=== PATIENT | female | born 1965 | race Caucasian/White ===

== ENCOUNTER 2016-09-18 21:16 | Inpatient (IN) | payer OTHER ==
[~2016-09-18] VITALS: Ht 165.1 cm; Wt 92.1 kg
[~2016-09-18 21:16] MED LIST: ALBU2.5V5 NEB; ASPI325T11 PO; ATOR20TA PO; Aspirin PO; CARV3.12 PO; CARV6.25 PO; CARV6.252 PO; DIGO250T PO; DOXY100T PO; FURO-68 PO; LINA290C PO; LOSA25TA PO; LOSA25TA4; Nicotine TD; POTA20TA12 PO; PRED-220 PO; PRED20TA PO; PROAIR HFA8.5 GM IH; SPIR25TA PO; TIOT4MIS3 IH
--- NOTE | 2016-09-18 21:50 | PHYS DOC ---
Past Medical History Past Medical History: Asthma, CHF, COPD Past Surgical History: Appendectomy, Cholecystectomy, Tonsillectomy, Tubal ligation Additional Past Surgical Histo: DEFIBULATOR Alcohol Use: None Drug Use: None Adult General Chief Complaint Chief Complaint: SHORTNESS OF BREATH [facility] HPI Patient is a 51 year old female who presents with complaint shortness of breath for the past 3 days. Patient states that her symptoms got severely worsened starting today. The patient states that she has been using her albuterol nebulizer machine at home with no improvement in symptoms. Patient last used it earlier this morning. Patient states that she also has been having difficulty with bowel movements. Patient states she hasn't had a bowel movement for the past 7 days. Patient is currently on Linzess therapy after being diagnosed with irritable bowel syndrome. Patient states that this has not been helping with her symptoms over the past week. Patient denies fever but states that she has been having body aches and generalized weakness. Patient states that she is not normally on oxygen at home though she is currently in process of getting a sleep study to see if she needs home oxygen at nighttime. Review of Systems Review of Systems Constitutional: Chills [] Eyes: Denies change in visual acuity, redness, or eye pain [] HENT: Denies nasal congestion or sore throat [] Respiratory: Shortness of breath, cough [] Cardiovascular: No additional information not addressed in HPI [] GI: Constipation, abdominal pain, nausea, denies vomiting, bloody stools or diarrhea [] : Denies dysuria or hematuria [] Musculoskeletal: Body aches, Denies back pain or joint pain [] Integument: Denies rash or skin lesions [] Neurologic: Denies headache, focal weakness or sensory changes [] Endocrine: Denies polyuria or polydipsia [] Current Medications Current Medications Current Medications Medications (Trade) Dose Ordered Sig/Siddharth Start Time Stop Time Status Last Admin Dose Admin Albuterol/ Ipratropium (Duoneb) 6 ml 1X ONCE 09/18/16 21:55 09/18/16 21:56 DC 09/18/16 22:03 6 ML Methylprednisolone Sodium Succinate (Solu-Medrol 125mg Vial) 125 mg 1X ONCE 09/18/16 21:55 09/18/16 21:56 DC 09/18/16 22:08 125 MG Allergies Allergies Allergies Coded Allergies Type Severity Reaction Last Updated Verified Penicillins Allergy Intermediate "Blacks out" 11/03/14 Yes levofloxacin Allergy Intermediate Itching 06/30/16 Yes azithromycin Adverse Reaction Mild n/v 06/30/16 Yes Physical Exam Physical Exam Constitutional: Well developed, well nourished, no acute distress, non-toxic appearance. [] HENT: Normocephalic, atraumatic, bilateral external ears normal, oropharynx moist, no oral exudates, nose normal. [] Eyes: PERRLA, EOMI, conjunctiva normal, no discharge. [] Neck: Normal range of motion, no tenderness, supple, no stridor. [] Cardiovascular:Heart rate regular rhythm, no murmur [] Lungs & Thorax: Bilateral breath sounds clear to auscultation [] Abdomen: Bowel sounds normal, soft, no tenderness, no masses, no pulsatile masses. [] Skin: Warm, dry, no erythema, no rash. [] Back: No tenderness, no CVA tenderness. [] Extremities: No tenderness, no cyanosis, no clubbing, ROM intact, no edema. [] Neurologic: Alert and oriented X 3, normal motor function, normal sensory function, no focal deficits noted. [] Psychologic: Affect normal, judgement normal, mood normal. [] Current Patient Data Vital Signs Vital Signs Date Time Temp Pulse Resp B/P Pulse Ox O2 Delivery O2 Flow Rate FiO2 09/18/16 22:21 97 Nasal Cannula 2.0 09/18/16 21:26 98 89 30 150/84 98.0 Lab Values Laboratory Tests Test 09/18/16 21:16 09/18/16 21:31 Influenza Type A Antigen Negative (NEGATIVE) Influenza Type B Antigen Negative (NEGATIVE) White Blood Count 8.9x10^3/uL (4.0-11.0) Red Blood Count 5.46x10^6/uL (3.50-5.40) H Hemoglobin 15.8g/dL (12.0-15.5) H Hematocrit 50.0% (36.0-47.0) H Mean Corpuscular Volume 92fL (79-100) Mean Corpuscular Hemoglobin 29pg (25-35) Mean Corpuscular Hemoglobin Concent 32g/dL (31-37) Red Cell Distribution Width 17.8% (11.5-14.5) H Platelet Count 187x10^3/uL (140-400) Neutrophils (%) (Auto) 68% (31-73) Lymphocytes (%) (Auto) 22% (24-48) L Monocytes (%) (Auto) 7% (0-9) Eosinophils (%) (Auto) 2% (0-3) Basophils (%) (Auto) 1% (0-3) Neutrophils # (Auto) 6.0x10^3uL (1.8-7.7) Lymphocytes # (Auto) 2.0x10^3/uL (1.0-4.8) Monocytes # (Auto) 0.6x10^3/uL (0.0-1.1) Eosinophils # (Auto) 0.1x10^3/uL (0.0-0.7) Basophils # (Auto) 0.1x10^3/uL (0.0-0.2) Sodium Level 140mmol/L (136-145) Potassium Level 4.6mmol/L (3.5-5.1) Chloride Level 102mmol/L (98-107) Carbon Dioxide Level 29mmol/L (21-32) Anion Gap 9 (6-14) Blood Urea Nitrogen 15mg/dL (7-20) Creatinine 1.0mg/dL (0.6-1.0) Estimated GFR (Cockcroft-Gault) 58.9 BUN/Creatinine Ratio 15 (6-20) Glucose Level 176mg/dL (70-99) H Calcium Level 8.9mg/dL (8.5-10.1) Total Bilirubin 2.1mg/dL (0.2-1.0) H Aspartate Amino Transferase (AST) 32U/L (15-37) Alanine Aminotransferase (ALT) 23U/L (14-59) Alkaline Phosphatase 66U/L (46-116) Creatine Kinase 64U/L (26-192) Creatine Kinase MB (Mass) 1.5ng/mL (0.0-3.6) Creatine Kinase MB Relative Index % (0-4) Troponin I Quantitative 0.081ng/mL (0.000-0.055) FB-Kyv-P-Type Natriuretic Peptide 8589pg/mL (0-124) H Total Protein 7.1g/dL (6.4-8.2) Albumin 3.0g/dL (3.4-5.0) L Albumin/Globulin Ratio 0.7 (1.0-1.7) L Laboratory Tests 09/18/16 21:31 Laboratory Tests 09/18/16 21:31 EKG EKG Interpreted by me: Heart rate 82, sinus rhythm, left axis deviation, no acute ST /T-wave abnormalities present, no acute changes from previous EKG [] Radiology/Procedures Radiology/Procedures 3 view acute abdominal series interpreted by me: Pulmonary edema, no effusions, nonobstructive bowel gas pattern, no free air under the diaphragm. [] Course & Med Decision Making Course & Med Decision Making Pertinent Labs and Imaging studies reviewed. (See chart for details) Patient was given 2 DuoNeb treatments in the emergency department and was given IV Lasix. Patient also given IV Solu-Medrol for treatment of COPD symptoms. The patient appears to have exacerbation of both COPD and congestive heart failure, with the latter being the primary diagnosis at this time. The patient will need to be admitted due to the presence of pulmonary edema and severe shortness of breath symptoms. Patient was also found to have an elevated troponin level. On review of patient's chart, the patient has had mild increases in her troponin level which is likely due to demand ischemia from patient's heart failure. This will continue to be monitored in the hospital. I spoke with Dr. Marshall who accepted care patient in hospital. A routine consult placed to Dr. Vázquez of cardiology and Dr. Bridges of pulmonology to follow patient in hospital. Dragon Disclaimer Dragon Disclaimer This electronic medical record was generated, in whole or in part, using a voice recognition dictation system. Departure Departure Impression: Primary Impression: Acute on chronic diastolic CHF (congestive heart failure) Additional Impressions: Pulmonary edema COPD (chronic obstructive pulmonary disease) Troponin level elevated Moderate protein malnutrition Disposition: ADMITTED INPATIENT Admitting Physician: Other Condition: STABLE Referrals: LUZMARIA HIGHTOWER MD (PCP) Problem Qualifiers Additional Impressions: Pulmonary edema Chronicity: acute Qualified Code: J81.0 - Acute pulmonary edema COPD (chronic obstructive pulmonary disease) COPD type: unspecified COPD Qualified Code: J44.9 - Chronic obstructive pulmonary disease, unspecified DERIAN JIN MD Sep 18, 2016 21:50
[2016-09-18] MEDS ORDERED: IPRATRPIUM/ALBUTEROL 0.5/2.5MG 3 ML NEBU. NEB ONE (21:55)
[2016-09-18] MEDS ORDERED: methylPREDNISolone SOD SUCC PF 125 MG/2 ML VIAL. IV ONE (21:55)
[2016-09-18 22:00] LABS: BASO # 0.1 x10^3/uL (0.0-0.2); BASO % 1 % (0-3); EOS % 2 % (0-3); HEMOGLOBIN 15.8 g/dL (12.0-15.5); LYMPH % 22 % (24-48); MEAN CORPUSCULAR HEMOGLOBIN 29 pg (25-35); MEAN CORPUSCULAR HGB CONC 32 g/dL (31-37); MEAN CORPUSCULAR VOLUME 92 fL (79-100); MONO % 7 % (0-9); NEUT % 68 % (31-73); PLATELET COUNT 187 x10^3/uL (140-400); RED BLOOD COUNT 5.46 x10^6/uL (3.50-5.40); RED CELL DISTRIBUTION WIDTH 17.8 % (11.5-14.5); WHITE BLOOD COUNT 8.9 x10^3/uL (4.0-11.0)
[2016-09-18 22:13] LABS: CALCIUM 8.9 mg/dL (8.5-10.1); GFR 58.9; POTASSIUM 4.6 mmol/L (3.5-5.1)
[2016-09-18 22:19] LABS: ALBUMIN/GLOBULIN RATIO 0.7 (1.0-1.7); TOTAL BILIRUBIN 2.1 mg/dL (0.2-1.0); TOTAL PROTEIN 7.1 g/dL (6.4-8.2)
[2016-09-18 22:21] LABS: OBC FLU VALID
[2016-09-18 22:27] LABS: CKMB MASS 1.5 ng/mL (0.0-3.6); CREATINE KINASE 64 U/L (26-192)
[2016-09-18] MEDS ORDERED: FENTANYL PF 100 MCG/2 ML VIAL. IV PRN (23:15)
[2016-09-18] MEDS ORDERED: IV NORMAL SALINE 1000ML BAG 1,000 ML IV SCH (23:15)
[2016-09-18] MEDS ORDERED: FUROSEMIDE 40 MG/4 ML VIAL IVP ONE (23:15)
[2016-09-18] MEDS ORDERED: ONDANSETRON PF 4 MG/2 ML VIAL. IV PRN (23:15)
[2016-09-18] MEDS ORDERED: ACETAMINOPHEN 325 MG TABLET. PO PRN (23:15)
[2016-09-18 23:45] VITALS: BP 144/89
[2016-09-19] MEDS ORDERED: ASPI-482 PO (00:23)
--- NOTE | 2016-09-19 01:34 | ACF ---
Admission Forms Criteria HEART FAILURE: COMMON COMPLICATIONS Clinical Indications for Inpatient Care (Place 'X' for any and all applicable criteria): Ongoing inpatient care may be indicated for heart failure with ANY ONE of the following (1)(2)(3)(4)(5): [ ]I. Ongoing need for care for primary condition requiring frequent therapy adjustments because of changes in cardiac function (eg, drug dosage changes for drugs that are renally metabolized) [ ]II. New-onset heart failure [ ]III. Heart failure with decreased urine output not responsive to attempts to optimize volume status [ ]IV. Acute cardiac ischemia causing or associated with failure [X]V. Complications of heart failure, including ANY ONE of the following: [ ]a) Pericardial effusion [ ]b) Symptomatic pleural effusion [ ]c) O2 saturation <90% or PO2 < 60 mm Hg (8.0 kPa) on room air or require baseline supplemental O2 [ ]d) Tachypnea [X]e) Dyspnea [ ]f) Syncope [ ]g) Change in mental status [ ]h) Acute renal insufficiency that is severe (reduction of more than 50% in estimated glomerular filtration rate from baseline) or progressive reduction of more than 25% in estimated glomerular filtration rate from baseline, with creatinine continuing to rise) [ ]i) Hemodynamic instability [ ]j) Anasarca [ ]k) Clinically significant metabolic abnormalities due to heart failure (eg, new-onset metabolic acidosis) Extended stay beyond goal length of stay for primary condition may be needed until ALL of the following are present(1)(3): [ ]a) Stable and effective diuretic regimen established (or patient on stable dialysis regimen if in chronic renal failure) [ ]b) Breathing comfortably at rest [ ]c) Saturation of arterial oxygen greater than 90% or at acceptable baseline [ ]d) Pulmonary edema absent or improved [ ]e) Hemodynamic stability [ ]f) Volume status acceptable on oral medication [ ]g) Peripheral or sacral edema absent or improved [ ]h) Renal function stable and manageable at a lower level of care [ ]i) Complications (eg, pleural effusion) resolved or manageable at a lower level of care [ ]j) Patient or caregiver has received written discharge instructions or educational material addressing activity level, diet, discharge medications, follow-up appointment, weight monitoring, and what to do if symptoms worsen The original [employer] content created by [employer] has been revised. The portions of the content which have been revised are identified through the use of italic text or in bold, and [facility] has neither reviewed nor approved the modified material.All other unmodified content is copyright [facility]. Please see references footnoted in the original [facility] edition 2016 Admission Criteria Met?: Yes DIA REYES Sep 19, 2016 01:34
[2016-09-19 03:55] VITALS: BP 128/83
[2016-09-19 05:09] LABS: BASO % 0 % (0-3); EOS % 0 % (0-3); HEMOGLOBIN 16.3 g/dL (12.0-15.5); LYMPH # 0.6 x10^3/uL (1.0-4.8); LYMPH % 9 % (24-48); MEAN CORPUSCULAR HEMOGLOBIN 29 pg (25-35); MEAN CORPUSCULAR HGB CONC 32 g/dL (31-37); MEAN CORPUSCULAR VOLUME 89 fL (79-100); MONO % 1 % (0-9); NEUT % 89 % (31-73); PLATELET COUNT 199 x10^3/uL (140-400); RED BLOOD COUNT 5.73 x10^6/uL (3.50-5.40); RED CELL DISTRIBUTION WIDTH 17.9 % (11.5-14.5); WHITE BLOOD COUNT 6.9 x10^3/uL (4.0-11.0)
[2016-09-19 05:27] LABS: GFR 58.9; POTASSIUM 4.1 mmol/L (3.5-5.1)
[2016-09-19 07:00] VITALS: BP 120/72
--- NOTE | 2016-09-19 07:03 | EKG ---
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
[2016-09-19] MEDS: IPRATRPIUM/ALBUTEROL 0.5/2.5MG 3 ML NEBU. NEB SCH ×4 (08:00→19:05)
--- NOTE | 2016-09-19 08:00 | RAD ---
Acute abdomen series with chest, 09/18/2016: History: Shortness of breath, epigastric pain Gas is present in large and small bowel with minimal gaseous distention of several small bowel loops. Small scattered air-fluid levels are present. No free air is seen in the abdomen. There is no evidence of organomegaly. Small pelvic calcifications are probably vascular. A left-sided transvenous pacing device is in place with 2 leads extending into the right heart. The heart is enlarged. The pulmonary vascularity is at the upper limits of normal. No pulmonary consolidation is seen. There is no evidence of pleural fluid. IMPRESSION: 1. Scattered air-fluid levels in the GI tract suggesting a mild ileus. Partial small bowel obstruction is less likely. 2. Cardiomegaly with borderline vascular congestion, similar to that seen on 06/29/2016.
--- NOTE | 2016-09-19 09:31 | PDOC2 ---
MARCIE TORRES SMOCKER 09/19/16 0931: CARDIAC CONSULT DATE OF CONSULT Date of Consult DATE: 09/19/16 TIME: 09:20 REASON FOR CONSULT Reason for Consult: CHF REFERRING PHYSICIAN Referring Physician: Dr. Chen SOURCE Source: Chart review, Patient HISTORY OF PRESENT ILLNESS HISTORY OF PRESENT ILLNESS This is a 51 yo female, with a h/o systolic CHF and NICM s/p AICD implantation, who presented with complaints of shortness of breath and constipation. Patient reports SOA began 3 days ago, worsened yesterday so she can in for evaluation. Denies any chest pain, palpitations, diaphoresis, orthopnea/PND, LE edema, or recent illness/fevers. Ocasional dizziness, unchanged. Does reports ongoing constipation and bowel problems. Last bowel movement 9 days ago. Started on Linzess a few days ago by PCP. Patient is very concerned that "something is really wrong with my bowels." Associated with nausea and abdominal cramping. Reports her stomach tightens like a "rock" and puts pressure on her lungs making it difficult to breathe. Previously, with episodes of acute heart failure with volume overload, patient reports she could "feel when I have too much fluid and I don't feel like that now." Patient does reports she will take an extra Lasix when she recognizes mild fluid retention; took extra dose 2 days ago. Otherwise, reports compliance with medications. PAST MEDICAL HISTORY Cardiovascular: CHF (systolic (LVEF 15%)), HTN, Other (NICM s/p AICD) Pulmonary: Asthma, COPD, Other (BRADLEY?) GI: Constipation Heme/Onc: No pertinent hx Hepatobiliary: No pertinent hx Psych: Anxiety Musculoskeletal: Osteoarthritis, Other (DJD) Rheumatologic: No pertinent hx Infectious disease: No pertinent hx ENT: No pertinent hx Renal/: No pertinent hx, Urinary Incontinence Endocrine: No pertinent hx Dermatology: No pertinent hx PAST SURGICAL HISTORY Past Surgical History: Pacemaker (AICD- Biotronik ), Appendectomy, Cholecystectomy, Tubal Ligation FAMILY HISTORY Family History: Cancer, Heart Disease SOCIAL HISTORY Smoke: <1 pack per day ALCOHOL: none Drugs: None Lives: Alone CURRENT MEDICATIONS CURRENT MEDICATIONS Current Medications Medications (Trade) Dose Ordered Sig/Siddharth Route PRN Reason Start Time Stop Time Status Last Admin Dose Admin Albuterol/ Ipratropium (Duoneb) 6 ml 1X ONCE NEB 09/18/16 21:55 09/18/16 21:56 DC 09/18/16 22:03 Methylprednisolone Sodium Succinate (Solu-Medrol 125mg Vial) 125 mg 1X ONCE IV 09/18/16 21:55 09/18/16 21:56 DC 09/18/16 22:08 Furosemide (Lasix) 60 mg 1X ONCE IVP 09/18/16 23:15 09/18/16 23:16 DC 09/18/16 23:12 ALLERGIES ALLERGIES: Coded Allergies: Penicillins (Verified Allergy, Intermediate, "Blacks out", 11/03/14) levofloxacin (Verified Allergy, Intermediate, Itching, 06/30/16) azithromycin (Verified Adverse Reaction, Mild, n/v, 06/30/16) ROS Review of System 14 point ROS conducted with pertinent positives noted above in HPI. PHYSICAL EXAM General: Alert, Oriented X3, Cooperative, No acute distress HEENT: Atraumatic, Mucous membr. moist/pink Lungs: Clear to auscultation, Normal air movement Heart: Regular rate, Normal S1, Normal S2 Abdomen: Soft, Other (diffuse tenderness upon palpation, hyperactive bowels) Extremities: No edema, Normal pulses Skin: No significant lesion Neuro: Normal speech, Strength at 5/5 X4 ext, Sensation intact Psych/Mental Status: Mental status NL, Mood NL MUSCULOSKELETAL: Full range of motion without pain VITALS VITALS Vital Signs Date Time Temp Pulse Resp B/P Pulse Ox O2 Delivery O2 Flow Rate FiO2 09/19/16 08:13 89 Room Air 09/19/16 07:00 97.9 102 20 120/72 97.9 09/18/16 23:50 2.0 LABS Lab: Laboratory Tests Test 09/18/16 21:16 09/18/16 21:31 09/19/16 04:12 09/19/16 04:28 Influenza Type A Antigen Negative (NEGATIVE) Influenza Type B Antigen Negative (NEGATIVE) White Blood Count 8.9x10^3/uL (4.0-11.0) 6.9x10^3/uL (4.0-11.0) Red Blood Count 5.46x10^6/uL (3.50-5.40) 5.73x10^6/uL (3.50-5.40) Hemoglobin 15.8g/dL (12.0-15.5) 16.3g/dL (12.0-15.5) Hematocrit 50.0% (36.0-47.0) 51.0% (36.0-47.0) Mean Corpuscular Volume 92fL (79-100) 89fL (79-100) Mean Corpuscular Hemoglobin 29pg (25-35) 29pg (25-35) Mean Corpuscular Hemoglobin Concent 32g/dL (31-37) 32g/dL (31-37) Red Cell Distribution Width 17.8% (11.5-14.5) 17.9% (11.5-14.5) Platelet Count 187x10^3/uL (140-400) 199x10^3/uL (140-400) Neutrophils (%) (Auto) 68% (31-73) 89% (31-73) Lymphocytes (%) (Auto) 22% (24-48) 9% (24-48) Monocytes (%) (Auto) 7% (0-9) 1% (0-9) Eosinophils (%) (Auto) 2% (0-3) 0% (0-3) Basophils (%) (Auto) 1% (0-3) 0% (0-3) Neutrophils # (Auto) 6.0x10^3uL (1.8-7.7) 6.2x10^3uL (1.8-7.7) Lymphocytes # (Auto) 2.0x10^3/uL (1.0-4.8) 0.6x10^3/uL (1.0-4.8) Monocytes # (Auto) 0.6x10^3/uL (0.0-1.1) 0.1x10^3/uL (0.0-1.1) Eosinophils # (Auto) 0.1x10^3/uL (0.0-0.7) 0.0x10^3/uL (0.0-0.7) Basophils # (Auto) 0.1x10^3/uL (0.0-0.2) 0.0x10^3/uL (0.0-0.2) Sodium Level 140mmol/L (136-145) 142mmol/L (136-145) Potassium Level 4.6mmol/L (3.5-5.1) 4.1mmol/L (3.5-5.1) Chloride Level 102mmol/L (98-107) 102mmol/L (98-107) Carbon Dioxide Level 29mmol/L (21-32) 32mmol/L (21-32) Anion Gap 9 (6-14) 8 (6-14) Blood Urea Nitrogen 15mg/dL (7-20) 17mg/dL (7-20) Creatinine 1.0mg/dL (0.6-1.0) 1.0mg/dL (0.6-1.0) Estimated GFR (Cockcroft-Gault) 58.9 58.9 BUN/Creatinine Ratio 15 (6-20) Glucose Level 176mg/dL (70-99) 164mg/dL (70-99) Calcium Level 8.9mg/dL (8.5-10.1) 9.0mg/dL (8.5-10.1) Total Bilirubin 2.1mg/dL (0.2-1.0) Aspartate Amino Transf (AST/SGOT) 32U/L (15-37) Alanine Aminotransferase (ALT/SGPT) 23U/L (14-59) Alkaline Phosphatase 66U/L (46-116) Creatine Kinase 64U/L (26-192) Creatine Kinase MB (Mass) 1.5ng/mL (0.0-3.6) Creatine Kinase MB Relative Index % (0-4) Troponin I Quantitative 0.081ng/mL (0.000-0.055) 0.059ng/mL (0.000-0.055) NU-Hxv-A-Type Natriuretic Peptide 8589pg/mL (0-124) Total Protein 7.1g/dL (6.4-8.2) Albumin 3.0g/dL (3.4-5.0) Albumin/Globulin Ratio 0.7 (1.0-1.7) ECHOCARDIOGRAM ECHOCARDIOGRAM <Conclusion> The Left Ventricle is severely dilated. The systolic function is severely impaired. Left ventricular ejection fraction is estimated at 15% There is severe global hypokinesis of the left ventricle. There is mild concentric left ventricular hypertrophy. There is a pacemaker/ICD lead in the right ventricle. There is no significant aortic valvular stenosis. Doppler and Color Flow revealed trace aortic regurgitation. Doppler and Color-flow revealed severe mitral regurgitation. Doppler and Color Flow revealed mild tricuspid regurgitation. The PA pressure was estimated at 53 mmHg. DATE: 07/02/16 1200 HEART CATH HEART CATH Conclusion 1. No significant coronary artery disease 2. Recent 2-D echo showed LVEF 25%. 3. Elevated left ventricular end-diastolic pressure 42 mmHg. No significant aortic stenosis. Recommendations Optimization of medical therapy for severe nonischemic cardiomyopathy. Consider repeating 2-D echo in 3 months to evaluate the need for AICD implantation for primary prevention of sudden cardiac . DATE: 11/05/14 1139 ASSESSMENT/PLAN ASSESSMENT/PLAN 1. Dyspnea multifactorial give acute HF, COPD, and possible ileus/abdominal pressure troponin peak 0.081- type II demand ischemia. Mild elevation consistent with previous admissions. Recent cath with no obstructive CAD as above. improved per pulmonary 2. Acute on chronic systolic HF NT Pro BNP mildly elevated CXR with cardiomegaly, no pleural fluid noted. Symptoms improved and moderate UOP with IV diuresis. continue with diuresis and monitoring of renal function 3. Nonischemic cardiomyopathy s/p Biotronik AICD implantation 11/14 cath with no significant CAD. will interrogate device. continue with optimization therapy as able. 4. Hypertension controlled. NPO for now with possible ileus. will start IV metoprolol for now for rate/BP control. resume oral Coreg and digoxin when able to take PO. 5. Hyperlipidemia resume statin therapy when taking oral 6. Constipation/ abdominal pain possible mild ileus per abdominal xray per PCP 7. Tobaccoism cessations encouraged. Problems: ZAHRA DOS SANTOS MD 09/19/16 1522: CARDIAC CONSULT ALLERGIES ALLERGIES: Coded Allergies: Penicillins (Verified Allergy, Intermediate, "Blacks out", 11/03/14) levofloxacin (Verified Allergy, Intermediate, Itching, 06/30/16) azithromycin (Verified Adverse Reaction, Mild, n/v, 06/30/16) ASSESSMENT/PLAN ASSESSMENT/PLAN Patient seen and examined. Agree with PRODUCTION TEAM MEMBER's assessment and plan. Acute respiratory failure multifactorial. Continue diuretics for acute on chronic systolic heart failure. Recent AICD check showed normal function without any recorded VT/VF. Troponin level very slightly elevated most probably secondary to hypoxia. Recent cardiac catheterization did not show any significant coronary artery disease. Doubt ACS. The importance of smoking cessation has been reemphasized. Thank you for your consultation. Problems: MARCIE TORRES APRN Sep 19, 2016 09:31 ZAHRA DOS SANTOS MD Sep 19, 2016 15:22
[2016-09-19 11:00] VITALS: BP 138/79
[2016-09-19] MEDS ORDERED: METOPROLOL TARTRATE 5 MG/5 ML VIAL. IVP SCH (12:00)
--- NOTE | 2016-09-19 13:28 | PDOC ---
Provider Note Provider Note dictated DEENA AGUERO MD Sep 19, 2016 13:27
--- NOTE | 2016-09-19 13:55 | PDOC2 ---
GI CONSULT Reason For Consult: Ileus, constipation HPI: HPI: 51 y/o white female admitted to cardiac floor w/ dyspnea and h/o COPD and CHF. Cardiology and pulmonology are following. Additionally, she has been constipated and x-ray was suggestive of mild ileus, hence GI consult. It seems she has a h/o constipation w/ 1 stool every 3-4 days until about 1 year ago when constipation worsened. She saw her PCP for this and tried a powder (? Miralax) which was ineffective. She has been taking Linzess 290mcg QD for about 7 months which is sometimes effective but sometimes not. Her last bowel movement was about 9 days ago. Stools are sometimes like "rabbit pellets." Right now, she feels like there is a "ball" close to her rectum. She is passing gas. With constipation, she has felt bloated (discomfort) and nauseated but is tolerating a regular diet. No reflux/heartburn, vomiting, dysphagia, hematochezia, or melena. She says her weight fluctuates w/ bloating. Occasionally takes Aleve, denies narcotic use at home. No previous EGD or colonoscopy although with these problems she has considered scheduling a colonoscopy. PMH: PMH: CHF, HTN, COPD, constipation, anxiety, OA, DJD, urinary incontinence, pacemaker , appendectomy, cholecystectomy, tubal ligation FH: Family History: Cancer (maternal granmother - colon cancer), CAD Social History: Smoke: <1 pack per day ALCOHOL: none Drugs: None ROS: GEN: Denies fevers, chills, sweats HEENT: Denies blurred vision, sore throat CV: Denies chest pain RESP: +SOA GI: Per HPI : Denies hematuria, dysuria ENDO: weight fluctuates NEURO: Denies confusion, dizziness MSK: Denies weakness, joint pain/swelling SKIN: Denies jaundice, pruritus VItals: Vitals: Vital Signs Date Time Temp Pulse Resp B/P Pulse Ox O2 Delivery O2 Flow Rate FiO2 09/19/16 13:16 93 138/79 09/19/16 11:59 Room Air 09/19/16 11:00 97.9 22 92 97.9 09/19/16 08:00 2.0 Labs: Labs: Laboratory Tests Test 09/18/16 21:16 09/18/16 21:31 09/19/16 04:12 09/19/16 04:28 Influenza Type A Antigen Negative (NEGATIVE) Influenza Type B Antigen Negative (NEGATIVE) White Blood Count 8.9x10^3/uL (4.0-11.0) 6.9x10^3/uL (4.0-11.0) Red Blood Count 5.46x10^6/uL (3.50-5.40) 5.73x10^6/uL (3.50-5.40) Hemoglobin 15.8g/dL (12.0-15.5) 16.3g/dL (12.0-15.5) Hematocrit 50.0% (36.0-47.0) 51.0% (36.0-47.0) Mean Corpuscular Volume 92fL (79-100) 89fL (79-100) Mean Corpuscular Hemoglobin 29pg (25-35) 29pg (25-35) Mean Corpuscular Hemoglobin Concent 32g/dL (31-37) 32g/dL (31-37) Red Cell Distribution Width 17.8% (11.5-14.5) 17.9% (11.5-14.5) Platelet Count 187x10^3/uL (140-400) 199x10^3/uL (140-400) Neutrophils (%) (Auto) 68% (31-73) 89% (31-73) Lymphocytes (%) (Auto) 22% (24-48) 9% (24-48) Monocytes (%) (Auto) 7% (0-9) 1% (0-9) Eosinophils (%) (Auto) 2% (0-3) 0% (0-3) Basophils (%) (Auto) 1% (0-3) 0% (0-3) Neutrophils # (Auto) 6.0x10^3uL (1.8-7.7) 6.2x10^3uL (1.8-7.7) Lymphocytes # (Auto) 2.0x10^3/uL (1.0-4.8) 0.6x10^3/uL (1.0-4.8) Monocytes # (Auto) 0.6x10^3/uL (0.0-1.1) 0.1x10^3/uL (0.0-1.1) Eosinophils # (Auto) 0.1x10^3/uL (0.0-0.7) 0.0x10^3/uL (0.0-0.7) Basophils # (Auto) 0.1x10^3/uL (0.0-0.2) 0.0x10^3/uL (0.0-0.2) Sodium Level 140mmol/L (136-145) 142mmol/L (136-145) Potassium Level 4.6mmol/L (3.5-5.1) 4.1mmol/L (3.5-5.1) Chloride Level 102mmol/L (98-107) 102mmol/L (98-107) Carbon Dioxide Level 29mmol/L (21-32) 32mmol/L (21-32) Anion Gap 9 (6-14) 8 (6-14) Blood Urea Nitrogen 15mg/dL (7-20) 17mg/dL (7-20) Creatinine 1.0mg/dL (0.6-1.0) 1.0mg/dL (0.6-1.0) Estimated GFR (Cockcroft-Gault) 58.9 58.9 BUN/Creatinine Ratio 15 (6-20) Glucose Level 176mg/dL (70-99) 164mg/dL (70-99) Calcium Level 8.9mg/dL (8.5-10.1) 9.0mg/dL (8.5-10.1) Total Bilirubin 2.1mg/dL (0.2-1.0) Aspartate Amino Transf (AST/SGOT) 32U/L (15-37) Alanine Aminotransferase (ALT/SGPT) 23U/L (14-59) Alkaline Phosphatase 66U/L (46-116) Creatine Kinase 64U/L (26-192) Creatine Kinase MB (Mass) 1.5ng/mL (0.0-3.6) Creatine Kinase MB Relative Index % (0-4) Troponin I Quantitative 0.081ng/mL (0.000-0.055) 0.059ng/mL (0.000-0.055) RA-Tan-H-Type Natriuretic Peptide 8589pg/mL (0-124) Total Protein 7.1g/dL (6.4-8.2) Albumin 3.0g/dL (3.4-5.0) Albumin/Globulin Ratio 0.7 (1.0-1.7) Test 09/19/16 10:30 Troponin I Quantitative 0.062ng/mL (0.000-0.055) Allergies: Coded Allergies: Penicillins (Verified Allergy, Intermediate, "Blacks out", 11/03/14) levofloxacin (Verified Allergy, Intermediate, Itching, 06/30/16) azithromycin (Verified Adverse Reaction, Mild, n/v, 06/30/16) Medications: Current Medications Medications (Trade) Dose Ordered Sig/Siddharth Route PRN Reason Start Time Stop Time Status Last Admin Dose Admin Albuterol/ Ipratropium (Duoneb) 6 ml 1X ONCE NEB 09/18/16 21:55 09/18/16 21:56 DC 09/18/16 22:03 Methylprednisolone Sodium Succinate (Solu-Medrol 125mg Vial) 125 mg 1X ONCE IV 09/18/16 21:55 09/18/16 21:56 DC 09/18/16 22:08 Furosemide (Lasix) 60 mg 1X ONCE IVP 09/18/16 23:15 09/18/16 23:16 DC 09/18/16 23:12 Albuterol/ Ipratropium (Duoneb) 3 ml RTQID NEB 09/19/16 08:00 09/20/16 07:59 09/19/16 08:00 Metoprolol Tartrate (Lopressor) 5 mg Q6HRS IVP 09/19/16 12:00 09/19/16 13:16 Imaging: Imagin09/18/16 IMPRESSION: 1. Scattered air-fluid levels in the GI tract suggesting a mild ileus. Partial small bowel obstruction is less likely. 2. Cardiomegaly with borderline vascular congestion, similar to that seen on . PE: GEN: NAD, sittign on edge of bed w/ empty lunch tray HEENT: Atraumatic, PERRL LUNGS: CTAB HEART: RRR ABD: BS+, epigastric/periumbilical discomfort (vague) EXTREMITY: No edema SKIN: No rashes, no jaundice NEURO/PSYCH: A & O 3 A/P: A/P: Constipation, bloating, nausea -worsening constipation x 1 year, uncontrolled w/ Linzess - last BM 9 days ago -tolerating diet Abnormal x-ray -suggestive of mild ileus Dyspnea/COPD, CHF -cardio and pulm following CRC screen, FH colon cancer -no previous colonoscopy -- Will try tap water enema and Relistor. ISABELLA GARRISON Sep 19, 2016 13:54
[2016-09-19 15:00] VITALS: BP 115/59
[2016-09-19] MEDS ORDERED: METHYLNALTREXONE 12 MG/0.6 ML VIAL. SQ ONE (15:00)
[2016-09-19] MEDS: FUROSEMIDE 40 MG/4 ML VIAL IVP SCH (16:43)
[2016-09-19] MEDS: ASPIRIN ENTERIC COATED 81 MG TABLET.DR. PO SCH (16:43)
[2016-09-19] MEDS: CARVEDILOL 6.25 MG TABLET PO SCH (16:43)
[2016-09-19] MEDS: DIGOXIN 250 MCG TABLET PO SCH (16:43)
[2016-09-19 19:40] VITALS: BP 126/76
--- NOTE | 2016-09-19 19:54 | HP ---
ADMIT DATE: 09/19/2016 CHIEF COMPLAINT: Shortness of breath. HISTORY OF PRESENT ILLNESS: The patient is a pleasant 51-year-old female who has previous history of CHF and COPD. She also has been recently diagnosed with irritable bowel syndrome. She started Linzess recently as well. Basically, the patient appears to be in heart failure. Her chest x-ray shows vascular congestion. She has crackles and her BNP level is greater than 8589. I discussed the case with the ER physician. We admitted the patient and examined her earlier this morning where she is diuresing. PAST MEDICAL HISTORY: CHF, tobacco abuse, COPD, hypertension, hyperlipidemia, appendectomy, cholecystectomy, tubal ligation, defibrillator placement, irritable bowel syndrome. FAMILY HISTORY: Coronary artery disease. ALLERGIES: PENICILLIN, AZITHROMYCIN and LEVAQUIN. SOCIAL HISTORY: She smokes. No drinking or drugs. MEDICATIONS: Reviewed, please refer to the MRAD. REVIEW OF SYSTEMS: GENERAL: No history of weight change, weakness or fevers. SKIN: No bruising, hair changes or rashes. EYES: No blurred, double or loss of vision. NOSE AND THROAT: No history of nosebleeds, hoarseness or sore throat. HEART: The patient complains of palpitations. LUNGS: The patient complains of shortness of breath. GASTROINTESTINAL: The patient complains of constipation. GENITOURINARY: No history of frequency, urgency, hesitancy or nocturia. NEUROLOGIC: Denies history of numbness, tingling, tremor or weakness. PSYCHIATRIC: No history of panic, anxiety or depression. ENDOCRINE: No history of heat or cold intolerance, polyuria or polydipsia. EXTREMITIES: Denies muscle weakness, joint pain, pain on walking or stiffness. PHYSICAL EXAMINATION: VITAL SIGNS: Temperature afebrile, pulse 67, respirations 18, blood pressure 113/91. GENERAL: She is alert, cooperative. HEART: Normal S1, S2 with a soft S3. LUNGS: Bibasilar crackles. ABDOMEN: Soft, decreased bowel sounds, slightly tender. EXTREMITIES: 1+ edema. SKIN: No rashes. PSYCHIATRIC: She is stable. LABORATORY DATA: Reviewed. ASSESSMENT AND PLAN: Vtvnd-my-uycibqh systolic and diastolic heart failure in a middle-aged female who also has the above noted comorbidities and now seems to have an ileus and/or mxpwe-ux-urzlffe constipation. The patient has been admitted. We are consulting GI and cardiology. IV diuretics, cardiac enzymes x 3, EKGs x 3. Suspect she will need an echocardiogram, but we will await further cardiac input. We will try enemas if GI agrees. Continue her home medicines. JORDANA HAY DO DR: LISA/clarisse JOB#: [id number] / [id number]
[2016-09-19 23:10] VITALS: BP 128/69
[2016-09-20 03:10] VITALS: BP 153/117
[2016-09-20 07:00] VITALS: BP 141/85
[2016-09-20] MEDS ORDERED: LINACLOTIDE 145 MCG CAPSULE. PO SCH (07:00)
[2016-09-20] MEDS: IPRATRPIUM/ALBUTEROL 0.5/2.5MG 3 ML NEBU. NEB SCH ×4 (07:39→21:01)
[2016-09-20] MEDS: LUBIPROSTONE 8 MCG CAPSULE PO SCH ×3 (08:00→18:07)
[2016-09-20] MEDS: CARVEDILOL 6.25 MG TABLET PO SCH ×2 (08:24→18:08)
[2016-09-20] MEDS: DIGOXIN 250 MCG TABLET PO SCH (08:24)
[2016-09-20] MEDS: ASPIRIN ENTERIC COATED 81 MG TABLET.DR. PO SCH (08:24)
[2016-09-20] MEDS: FUROSEMIDE 40 MG/4 ML VIAL IVP SCH (08:25)
--- NOTE | 2016-09-20 09:12 | CONS ---
DATE OF CONSULTATION: 09/19/2016 ATTENDING PHYSICIAN: Dr. Marshall. REASON FOR CONSULTATION: Dyspnea. HISTORY OF PRESENT ILLNESS: The patient is a 51-year-old female, with history of severe cardiomyopathy with an EF of 15%. She has history of tobacco use for 30 years. She used to smoke 2 packs per day, now 1 pack would last for 3 days. She presented to the hospital with increasing shortness of breath for the past 3 days. She has a mild cough which is nonproductive. No fever, no chills, no chest pains. No nausea or vomiting. No headaches. No leg edema. Her chest x-ray was consistent with mild congestive heart failure and cardiomegaly. PAST MEDICAL HISTORY: History of severe cardiomyopathy with an EF of 15%, with severe hypokinesis of the LV. Probable underlying COPD. PAST SURGICAL HISTORY: Include appendectomy, cholecystectomy, tonsillectomy, tubal ligation, and defibrillator. ALLERGIES: TO PENICILLIN, AZITHROMYCIN, LEVAQUIN. CURRENT MEDICATIONS: Reviewed as listed in the MRAD. She is currently on DuoNebs, but not on any diuretics. REVIEW OF SYSTEMS: Twelve-point review of systems was obtained. Pertinent positives discussed in history of present illness, otherwise noncontributory. All systems that were negative were reviewed as well. SOCIAL HISTORY: Smoked for 30 years up to 2 packs per day, now 1 pack would last a week. PHYSICAL EXAMINATION: VITAL SIGNS: Blood pressure 138/79, pulse ox 92% on room air, afebrile. NECK: Supple. LUNGS: With diminished breath sounds. No crackles or wheezes. CARDIOVASCULAR: Regular rate and rhythm. ABDOMEN: Soft, obese. EXTREMITIES: No pitting edema. LABORATORY DATA: Reviewed. White cell count 6.9, hemoglobin 16.3, and platelets are 199. BUN 17, creatinine 1.0. Troponin is 0.081. IMPRESSION: 1. Dyspnea secondary to voyvf-wy-eiebwgt systolic heart failure. 2. Severe cardiomyopathy with an EF of 15%, with severe global hypokinesis of the left ventricle. Status post defibrillator. 3. Suspected underlying chronic obstructive pulmonary disease: Could be moderate, with ongoing tobaccoism. RECOMMENDATIONS: 1. Would recommend aggressive diuresis. To be managed by Cardiology. 2. From a pulmonary standpoint, I have given her counseling for tobacco cessation. 3. We will continue with present DuoNebs. 4. Currently, she does not have any wheezing and okay to continue with metoprolol. 5. Follow Cardiology recommendations. 6. Discussed with RN. DEENA AGUERO MD DR: ELAINE/clarisse JOB#: [id number] / [id number] WILNER
--- NOTE | 2016-09-20 09:13 | PDOC ---
Subjective: Subjective: Less bloated, passing gas, also passed small amount of stool after Relistor. Not excited about keeping to clear liquids today. Objective: Objective: Enema not done. Vital Signs: Vital Signs Date Time Temp Pulse Resp B/P Pulse Ox O2 Delivery O2 Flow Rate FiO2 09/20/16 08:24 100 141/85 09/20/16 07:41 93 Room Air 09/20/16 07:00 97.5 97.5 09/20/16 03:10 18 09/19/16 23:10 2.0 Labs: Laboratory Tests Test 09/19/16 10:30 Troponin I Quantitative 0.062ng/mL PE: GEN: NAD LUNGS: CTAB HEART: RRR ABD: BS+ non-tender NEURO/PSYCH: A & O 3 A/P: Constipation, bloating -worsening constipation x 1 year, uncontrolled w/ Linzess as outpatient -had a small stool after Relistor; didn't receive tap water enema Dyspnea/COPD, CHF -cardio and pulm following CRC screen, FH colon cancer -no previous colonoscopy -- Proceed w/ enema, Amitiza, and Golytely (later this afternoon). Plans for EGD and colonoscopy tomorrow following prep. Clears today, NPO at midnight. ISABELLA GARRISON Sep 20, 2016 09:13
[2016-09-20 09:32] LABS: BASO # 0.1 x10^3/uL (0.0-0.2); BASO % 1 % (0-3); EOS % 0 % (0-3); HEMATOCRIT 51.5 % (36.0-47.0); HEMOGLOBIN 16.5 g/dL (12.0-15.5); LYMPH # 1.1 x10^3/uL (1.0-4.8); LYMPH % 8 % (24-48); MEAN CORPUSCULAR HEMOGLOBIN 28 pg (25-35); MEAN CORPUSCULAR HGB CONC 32 g/dL (31-37); MEAN CORPUSCULAR VOLUME 89 fL (79-100); MONO % 6 % (0-9); NEUT % 85 % (31-73); PLATELET COUNT 223 x10^3/uL (140-400); RED BLOOD COUNT 5.79 x10^6/uL (3.50-5.40); RED CELL DISTRIBUTION WIDTH 17.8 % (11.5-14.5); WHITE BLOOD COUNT 14.3 x10^3/uL (4.0-11.0)
[2016-09-20 09:57] LABS: CALCIUM 8.7 mg/dL (8.5-10.1); GFR 58.9; POTASSIUM 4.6 mmol/L (3.5-5.1)
[2016-09-20] MEDS ORDERED: ACETAMINOPHEN 325 MG TABLET. PO PRN (11:00)
[2016-09-20 11:15] VITALS: BP 102/67
--- NOTE | 2016-09-20 12:00 | PDOC ---
PULMONARY PROGRESS NOTES Subjective no soa Vitals Vital Signs Date Time Temp Pulse Resp B/P Pulse Ox O2 Delivery O2 Flow Rate FiO2 09/20/16 11:15 97.6 83 20 102/67 93 Room Air 97.6 09/20/16 08:00 2.0 General: Alert Lungs: Clear Cardiovascular: S1, S2 Abdomen: Soft Neuro Exam: Alert Extremities: No Edema Skin: Warm Labs Laboratory Tests Test 09/18/16 21:16 09/18/16 21:31 09/19/16 04:12 09/19/16 04:28 Influenza Type A Antigen Negative (NEGATIVE) Influenza Type B Antigen Negative (NEGATIVE) White Blood Count 8.9x10^3/uL (4.0-11.0) 6.9x10^3/uL (4.0-11.0) Red Blood Count 5.46x10^6/uL (3.50-5.40) 5.73x10^6/uL (3.50-5.40) Hemoglobin 15.8g/dL (12.0-15.5) 16.3g/dL (12.0-15.5) Hematocrit 50.0% (36.0-47.0) 51.0% (36.0-47.0) Mean Corpuscular Volume 92fL (79-100) 89fL (79-100) Mean Corpuscular Hemoglobin 29pg (25-35) 29pg (25-35) Mean Corpuscular Hemoglobin Concent 32g/dL (31-37) 32g/dL (31-37) Red Cell Distribution Width 17.8% (11.5-14.5) 17.9% (11.5-14.5) Platelet Count 187x10^3/uL (140-400) 199x10^3/uL (140-400) Neutrophils (%) (Auto) 68% (31-73) 89% (31-73) Lymphocytes (%) (Auto) 22% (24-48) 9% (24-48) Monocytes (%) (Auto) 7% (0-9) 1% (0-9) Eosinophils (%) (Auto) 2% (0-3) 0% (0-3) Basophils (%) (Auto) 1% (0-3) 0% (0-3) Neutrophils # (Auto) 6.0x10^3uL (1.8-7.7) 6.2x10^3uL (1.8-7.7) Lymphocytes # (Auto) 2.0x10^3/uL (1.0-4.8) 0.6x10^3/uL (1.0-4.8) Monocytes # (Auto) 0.6x10^3/uL (0.0-1.1) 0.1x10^3/uL (0.0-1.1) Eosinophils # (Auto) 0.1x10^3/uL (0.0-0.7) 0.0x10^3/uL (0.0-0.7) Basophils # (Auto) 0.1x10^3/uL (0.0-0.2) 0.0x10^3/uL (0.0-0.2) Sodium Level 140mmol/L (136-145) 142mmol/L (136-145) Potassium Level 4.6mmol/L (3.5-5.1) 4.1mmol/L (3.5-5.1) Chloride Level 102mmol/L (98-107) 102mmol/L (98-107) Carbon Dioxide Level 29mmol/L (21-32) 32mmol/L (21-32) Anion Gap 9 (6-14) 8 (6-14) Blood Urea Nitrogen 15mg/dL (7-20) 17mg/dL (7-20) Creatinine 1.0mg/dL (0.6-1.0) 1.0mg/dL (0.6-1.0) Estimated GFR (Cockcroft-Gault) 58.9 58.9 BUN/Creatinine Ratio 15 (6-20) Glucose Level 176mg/dL (70-99) 164mg/dL (70-99) Calcium Level 8.9mg/dL (8.5-10.1) 9.0mg/dL (8.5-10.1) Total Bilirubin 2.1mg/dL (0.2-1.0) Aspartate Amino Transf (AST/SGOT) 32U/L (15-37) Alanine Aminotransferase (ALT/SGPT) 23U/L (14-59) Alkaline Phosphatase 66U/L (46-116) Creatine Kinase 64U/L (26-192) Creatine Kinase MB (Mass) 1.5ng/mL (0.0-3.6) Creatine Kinase MB Relative Index % (0-4) Troponin I Quantitative 0.081ng/mL (0.000-0.055) 0.059ng/mL (0.000-0.055) CV-Bcj-G-Type Natriuretic Peptide 8589pg/mL (0-124) Total Protein 7.1g/dL (6.4-8.2) Albumin 3.0g/dL (3.4-5.0) Albumin/Globulin Ratio 0.7 (1.0-1.7) Test 09/19/16 10:30 09/20/16 09:00 Troponin I Quantitative 0.062ng/mL (0.000-0.055) White Blood Count 14.3x10^3/uL (4.0-11.0) Red Blood Count 5.79x10^6/uL (3.50-5.40) Hemoglobin 16.5g/dL (12.0-15.5) Hematocrit 51.5% (36.0-47.0) Mean Corpuscular Volume 89fL (79-100) Mean Corpuscular Hemoglobin 28pg (25-35) Mean Corpuscular Hemoglobin Concent 32g/dL (31-37) Red Cell Distribution Width 17.8% (11.5-14.5) Platelet Count 223x10^3/uL (140-400) Neutrophils (%) (Auto) 85% (31-73) Lymphocytes (%) (Auto) 8% (24-48) Monocytes (%) (Auto) 6% (0-9) Eosinophils (%) (Auto) 0% (0-3) Basophils (%) (Auto) 1% (0-3) Neutrophils # (Auto) 12.2x10^3uL (1.8-7.7) Lymphocytes # (Auto) 1.1x10^3/uL (1.0-4.8) Monocytes # (Auto) 0.9x10^3/uL (0.0-1.1) Eosinophils # (Auto) 0.0x10^3/uL (0.0-0.7) Basophils # (Auto) 0.1x10^3/uL (0.0-0.2) Sodium Level 139mmol/L (136-145) Potassium Level 4.6mmol/L (3.5-5.1) Chloride Level 99mmol/L (98-107) Carbon Dioxide Level 32mmol/L (21-32) Anion Gap 8 (6-14) Blood Urea Nitrogen 25mg/dL (7-20) Creatinine 1.0mg/dL (0.6-1.0) Estimated GFR (Cockcroft-Gault) 58.9 Glucose Level 150mg/dL (70-99) Calcium Level 8.7mg/dL (8.5-10.1) Laboratory Tests Test 09/20/16 09:00 White Blood Count 14.3x10^3/uL (4.0-11.0) Red Blood Count 5.79x10^6/uL (3.50-5.40) Hemoglobin 16.5g/dL (12.0-15.5) Hematocrit 51.5% (36.0-47.0) Mean Corpuscular Volume 89fL (79-100) Mean Corpuscular Hemoglobin 28pg (25-35) Mean Corpuscular Hemoglobin Concent 32g/dL (31-37) Red Cell Distribution Width 17.8% (11.5-14.5) Platelet Count 223x10^3/uL (140-400) Neutrophils (%) (Auto) 85% (31-73) Lymphocytes (%) (Auto) 8% (24-48) Monocytes (%) (Auto) 6% (0-9) Eosinophils (%) (Auto) 0% (0-3) Basophils (%) (Auto) 1% (0-3) Neutrophils # (Auto) 12.2x10^3uL (1.8-7.7) Lymphocytes # (Auto) 1.1x10^3/uL (1.0-4.8) Monocytes # (Auto) 0.9x10^3/uL (0.0-1.1) Eosinophils # (Auto) 0.0x10^3/uL (0.0-0.7) Basophils # (Auto) 0.1x10^3/uL (0.0-0.2) Sodium Level 139mmol/L (136-145) Potassium Level 4.6mmol/L (3.5-5.1) Chloride Level 99mmol/L (98-107) Carbon Dioxide Level 32mmol/L (21-32) Anion Gap 8 (6-14) Blood Urea Nitrogen 25mg/dL (7-20) Creatinine 1.0mg/dL (0.6-1.0) Estimated GFR (Cockcroft-Gault) 58.9 Glucose Level 150mg/dL (70-99) Calcium Level 8.7mg/dL (8.5-10.1) Medications Active Scripts Medications Dose Route/Sig Days Date Category Dose Instructions Aspir 81 (Aspirin) 81 Mg Tablet.dr 1 Tab PO DAILY 09/19/16 Reported Linzess (Linaclotide) 290 Mcg Capsule 290 Mcg PO DAILY 06/30/16 Reported Stiolto Respimat Inhal [place] (Tiotropium Br/Olodaterol HCl) 4 Gm Mist.inhal 4 Gm IH PRN TID PRN 06/30/16 Reported Aldactone (Spironolactone) 25 Mg Tablet 25 Mg PO DAILY 08/10/15 Rx Digoxin 250 Mcg Tablet 1 Tab PO DAILY 02/08/15 Reported Coreg (Carvedilol) 6.25 Mg Tablet 1 Tab PO BID 02/08/15 Reported Lasix (Furosemide) 40 Mg Tablet 40 Mg PO BID 01/04/15 Reported Indication: diuretic Next dose: 02/05/15 am Proair Hfa Inhaler (Albuterol Sulfate) 8.5 Gm Hfa.aer.ad 2 Puff IH PRN Q4-6HRS 11/03/14 Reported Indication: shortness of breath Next dose: as needed Albuterol Sulfate Neb Soln (Albuterol Sulfate) 2.5 Mg/3 Ml Vial.neb 1 Vial NEB PRN Q4HRS PRN 11/03/14 Reported Indication: shortness of breath Next dose: as needed Impression . 1. Dyspnea secondary to oywwf-ao-hsqzzll systolic heart failure. 2. Severe cardiomyopathy with an EF of 15%, with severe global hypokinesis of the left ventricle. Status post defibrillator. 3. Suspected underlying chronic obstructive pulmonary disease: Could be moderate, with ongoing tobaccoism. Plan . 1. Would recommend aggressive diuresis. To be managed by Cardiology. 2. From a pulmonary standpoint, I have given her counseling for tobacco cessation. 3. We will continue with present DuoNebs. 4. Currently, she does not have any wheezing and okay to continue with metoprolol. 5. Follow Cardiology recommendations. 6. Discussed with GAY. DEENA AGUERO MD Sep 20, 2016 12:00
--- NOTE | 2016-09-20 12:08 | PDOC ---
MARCIE TORRES FORENSIC SCIENCE TECHNICIAN 09/20/16 1208: CARDIO Progress Notes Date and Time Date of Service 09/20/16 Time of Evaluation 1215 Subjective Subjective: No Chest Pain, No shortness of breath, No Palpitations, Other ( feeling much better, had BM this morning post enema) Vitals Vitals Vital Signs Date Time Temp Pulse Resp B/P Pulse Ox O2 Delivery O2 Flow Rate FiO2 09/20/16 11:15 97.6 83 20 102/67 93 Room Air 97.6 09/20/16 08:00 2.0 Weight Weight [ ] Input and Output Intake and Output Intake and Output 09/20/16 07:00 Intake Total 1100 ml Output Total 400 ml Balance 700 ml Intake Oral 1100 ml Output Urine Total 400 ml # Voids 9 Laboratory Labs Laboratory Tests Test 09/20/16 09:00 White Blood Count 14.3x10^3/uL (4.0-11.0) Red Blood Count 5.79x10^6/uL (3.50-5.40) Hemoglobin 16.5g/dL (12.0-15.5) Hematocrit 51.5% (36.0-47.0) Mean Corpuscular Volume 89fL (79-100) Mean Corpuscular Hemoglobin 28pg (25-35) Mean Corpuscular Hemoglobin Concent 32g/dL (31-37) Red Cell Distribution Width 17.8% (11.5-14.5) Platelet Count 223x10^3/uL (140-400) Neutrophils (%) (Auto) 85% (31-73) Lymphocytes (%) (Auto) 8% (24-48) Monocytes (%) (Auto) 6% (0-9) Eosinophils (%) (Auto) 0% (0-3) Basophils (%) (Auto) 1% (0-3) Neutrophils # (Auto) 12.2x10^3uL (1.8-7.7) Lymphocytes # (Auto) 1.1x10^3/uL (1.0-4.8) Monocytes # (Auto) 0.9x10^3/uL (0.0-1.1) Eosinophils # (Auto) 0.0x10^3/uL (0.0-0.7) Basophils # (Auto) 0.1x10^3/uL (0.0-0.2) Sodium Level 139mmol/L (136-145) Potassium Level 4.6mmol/L (3.5-5.1) Chloride Level 99mmol/L (98-107) Carbon Dioxide Level 32mmol/L (21-32) Anion Gap 8 (6-14) Blood Urea Nitrogen 25mg/dL (7-20) Creatinine 1.0mg/dL (0.6-1.0) Estimated GFR (Cockcroft-Gault) 58.9 Glucose Level 150mg/dL (70-99) Calcium Level 8.7mg/dL (8.5-10.1) Physical Exam HEENT: Neck Supple W Full Motion Chest: Symmetric LUNGS: Clear to Auscultation Heart: S1S2, RRR Abdomen: Soft N/T Extremities: No Edema, No Calf Tenderness Neurology: alert, oriented, follow commands Assessment Assessment 1. Dyspnea multifactorial give acute HF, COPD, and possible ileus/abdominal pressure troponin peak 0.081- type II demand ischemia related to hypoxia. Mild elevation consistent with previous admissions. Recent cath with no obstructive CAD as above. improved- denies SOA. per pulmonary 2. Acute on chronic systolic HF NT Pro BNP mildly elevated CXR with cardiomegaly, no pleural fluid noted. -1.5L with IV Lasix appears clinically compensated. Continue with oral diuresis. will add low-dose ACEi for optimization if BP allows. 3. Nonischemic cardiomyopathy s/p Biotronik AICD implantation 11/14 cath with no significant CAD. device interrogation revealed normal function. continue with optimization therapy as able. 4. Hypertension controlled. continue with current therapy as able 5. Hyperlipidemia check lipids 6. Constipation/ abdominal pain possible mild ileus per abdominal xray GI following. EGD/colonoscopy planned for today. 7. Tobaccoism cessation encouraged. ZAHRA DOS SANTOS MD 09/20/16 1612: CARDIO Progress Notes Assessment Assessment Patient seen and examined. Agree with AUTOMATION DEVELOPER's assessment and plan. Acute on chronic systolic heart failure better compensated with diuresis. ICD interrogation showed normal function. Continue current medical regimen. MARCIE TORRES APRN Sep 20, 2016 12:08 ZAHRA DOS SANTOS MD Sep 20, 2016 16:12
--- NOTE | 2016-09-20 12:38 | PDOC ---
PROGRESS NOTES Chief Complaint Chief Complaint Assessment - Acute on chronic systolic HF - Dyspnea - Suspected COPD - Nonischemic cardiomyopathy - Hypertension - Hyperlipidemia - Constipation/ abdominal pain - Tobacco abuse History of Present Illness History of Present Illness Patient resting in bed on exam this morning. She reports finally having a bowel movement and now complains of headache. Tylenol ordered for headache. Discussed continuing current treatment plan and colonoscopy planned for tomorrow. Vitals Vitals Vital Signs Date Time Temp Pulse Resp B/P Pulse Ox O2 Delivery O2 Flow Rate FiO2 09/20/16 11:15 97.6 83 20 102/67 93 Room Air 97.6 09/20/16 08:00 2.0 Physical Exam General: Alert, Oriented X3, Cooperative, No acute distress Heart: Regular rate, Normal S1, Normal S2 Lungs: Clear Abdomen: Soft Extremities: No edema, Normal pulses Skin: No significant lesion Labs LABS Laboratory Tests Test 09/20/16 09:00 White Blood Count 14.3x10^3/uL (4.0-11.0) Red Blood Count 5.79x10^6/uL (3.50-5.40) Hemoglobin 16.5g/dL (12.0-15.5) Hematocrit 51.5% (36.0-47.0) Mean Corpuscular Volume 89fL (79-100) Mean Corpuscular Hemoglobin 28pg (25-35) Mean Corpuscular Hemoglobin Concent 32g/dL (31-37) Red Cell Distribution Width 17.8% (11.5-14.5) Platelet Count 223x10^3/uL (140-400) Neutrophils (%) (Auto) 85% (31-73) Lymphocytes (%) (Auto) 8% (24-48) Monocytes (%) (Auto) 6% (0-9) Eosinophils (%) (Auto) 0% (0-3) Basophils (%) (Auto) 1% (0-3) Neutrophils # (Auto) 12.2x10^3uL (1.8-7.7) Lymphocytes # (Auto) 1.1x10^3/uL (1.0-4.8) Monocytes # (Auto) 0.9x10^3/uL (0.0-1.1) Eosinophils # (Auto) 0.0x10^3/uL (0.0-0.7) Basophils # (Auto) 0.1x10^3/uL (0.0-0.2) Sodium Level 139mmol/L (136-145) Potassium Level 4.6mmol/L (3.5-5.1) Chloride Level 99mmol/L (98-107) Carbon Dioxide Level 32mmol/L (21-32) Anion Gap 8 (6-14) Blood Urea Nitrogen 25mg/dL (7-20) Creatinine 1.0mg/dL (0.6-1.0) Estimated GFR (Cockcroft-Gault) 58.9 Glucose Level 150mg/dL (70-99) Calcium Level 8.7mg/dL (8.5-10.1) Review of Systems Review of Systems Denies chest pain Denies nausea, vomiting, fevers, and chills Constipation improving, had bowel movement Assessment and Plan Assessmemt and Plan Assessment - Acute on chronic systolic HF - Dyspnea - Suspected COPD - Nonischemic cardiomyopathy - Hypertension - Hyperlipidemia - Constipation/ abdominal pain - Headache - Tobacco abuse Plan: -Continue diuretics -Cardiology following for CHF -Pulmonology following for dyspnea/COPD -GI following for constipation/abdominal pain - colonoscopy planned for tomorrow -Continue DuoNebs -Continue blood pressure management -Ordered Tylenol 650 mg for headache -Tobacco cessation -Appreciate subspecialist input Problems: Comment Review of Relevant I have reviewed the following items marva (where applicable) has been applied. Labs Laboratory Tests Test 09/18/16 21:16 09/18/16 21:31 09/19/16 04:12 09/19/16 04:28 Influenza Type A Antigen Negative (NEGATIVE) Influenza Type B Antigen Negative (NEGATIVE) White Blood Count 8.9x10^3/uL (4.0-11.0) 6.9x10^3/uL (4.0-11.0) Red Blood Count 5.46x10^6/uL (3.50-5.40) 5.73x10^6/uL (3.50-5.40) Hemoglobin 15.8g/dL (12.0-15.5) 16.3g/dL (12.0-15.5) Hematocrit 50.0% (36.0-47.0) 51.0% (36.0-47.0) Mean Corpuscular Volume 92fL (79-100) 89fL (79-100) Mean Corpuscular Hemoglobin 29pg (25-35) 29pg (25-35) Mean Corpuscular Hemoglobin Concent 32g/dL (31-37) 32g/dL (31-37) Red Cell Distribution Width 17.8% (11.5-14.5) 17.9% (11.5-14.5) Platelet Count 187x10^3/uL (140-400) 199x10^3/uL (140-400) Neutrophils (%) (Auto) 68% (31-73) 89% (31-73) Lymphocytes (%) (Auto) 22% (24-48) 9% (24-48) Monocytes (%) (Auto) 7% (0-9) 1% (0-9) Eosinophils (%) (Auto) 2% (0-3) 0% (0-3) Basophils (%) (Auto) 1% (0-3) 0% (0-3) Neutrophils # (Auto) 6.0x10^3uL (1.8-7.7) 6.2x10^3uL (1.8-7.7) Lymphocytes # (Auto) 2.0x10^3/uL (1.0-4.8) 0.6x10^3/uL (1.0-4.8) Monocytes # (Auto) 0.6x10^3/uL (0.0-1.1) 0.1x10^3/uL (0.0-1.1) Eosinophils # (Auto) 0.1x10^3/uL (0.0-0.7) 0.0x10^3/uL (0.0-0.7) Basophils # (Auto) 0.1x10^3/uL (0.0-0.2) 0.0x10^3/uL (0.0-0.2) Sodium Level 140mmol/L (136-145) 142mmol/L (136-145) Potassium Level 4.6mmol/L (3.5-5.1) 4.1mmol/L (3.5-5.1) Chloride Level 102mmol/L (98-107) 102mmol/L (98-107) Carbon Dioxide Level 29mmol/L (21-32) 32mmol/L (21-32) Anion Gap 9 (6-14) 8 (6-14) Blood Urea Nitrogen 15mg/dL (7-20) 17mg/dL (7-20) Creatinine 1.0mg/dL (0.6-1.0) 1.0mg/dL (0.6-1.0) Estimated GFR (Cockcroft-Gault) 58.9 58.9 BUN/Creatinine Ratio 15 (6-20) Glucose Level 176mg/dL (70-99) 164mg/dL (70-99) Calcium Level 8.9mg/dL (8.5-10.1) 9.0mg/dL (8.5-10.1) Total Bilirubin 2.1mg/dL (0.2-1.0) Aspartate Amino Transf (AST/SGOT) 32U/L (15-37) Alanine Aminotransferase (ALT/SGPT) 23U/L (14-59) Alkaline Phosphatase 66U/L (46-116) Creatine Kinase 64U/L (26-192) Creatine Kinase MB (Mass) 1.5ng/mL (0.0-3.6) Creatine Kinase MB Relative Index % (0-4) Troponin I Quantitative 0.081ng/mL (0.000-0.055) 0.059ng/mL (0.000-0.055) TC-Lwm-Q-Type Natriuretic Peptide 8589pg/mL (0-124) Total Protein 7.1g/dL (6.4-8.2) Albumin 3.0g/dL (3.4-5.0) Albumin/Globulin Ratio 0.7 (1.0-1.7) Test 09/19/16 10:30 09/20/16 09:00 Troponin I Quantitative 0.062ng/mL (0.000-0.055) White Blood Count 14.3x10^3/uL (4.0-11.0) Red Blood Count 5.79x10^6/uL (3.50-5.40) Hemoglobin 16.5g/dL (12.0-15.5) Hematocrit 51.5% (36.0-47.0) Mean Corpuscular Volume 89fL (79-100) Mean Corpuscular Hemoglobin 28pg (25-35) Mean Corpuscular Hemoglobin Concent 32g/dL (31-37) Red Cell Distribution Width 17.8% (11.5-14.5) Platelet Count 223x10^3/uL (140-400) Neutrophils (%) (Auto) 85% (31-73) Lymphocytes (%) (Auto) 8% (24-48) Monocytes (%) (Auto) 6% (0-9) Eosinophils (%) (Auto) 0% (0-3) Basophils (%) (Auto) 1% (0-3) Neutrophils # (Auto) 12.2x10^3uL (1.8-7.7) Lymphocytes # (Auto) 1.1x10^3/uL (1.0-4.8) Monocytes # (Auto) 0.9x10^3/uL (0.0-1.1) Eosinophils # (Auto) 0.0x10^3/uL (0.0-0.7) Basophils # (Auto) 0.1x10^3/uL (0.0-0.2) Sodium Level 139mmol/L (136-145) Potassium Level 4.6mmol/L (3.5-5.1) Chloride Level 99mmol/L (98-107) Carbon Dioxide Level 32mmol/L (21-32) Anion Gap 8 (6-14) Blood Urea Nitrogen 25mg/dL (7-20) Creatinine 1.0mg/dL (0.6-1.0) Estimated GFR (Cockcroft-Gault) 58.9 Glucose Level 150mg/dL (70-99) Calcium Level 8.7mg/dL (8.5-10.1) Laboratory Tests Test 09/20/16 09:00 White Blood Count 14.3x10^3/uL (4.0-11.0) Red Blood Count 5.79x10^6/uL (3.50-5.40) Hemoglobin 16.5g/dL (12.0-15.5) Hematocrit 51.5% (36.0-47.0) Mean Corpuscular Volume 89fL (79-100) Mean Corpuscular Hemoglobin 28pg (25-35) Mean Corpuscular Hemoglobin Concent 32g/dL (31-37) Red Cell Distribution Width 17.8% (11.5-14.5) Platelet Count 223x10^3/uL (140-400) Neutrophils (%) (Auto) 85% (31-73) Lymphocytes (%) (Auto) 8% (24-48) Monocytes (%) (Auto) 6% (0-9) Eosinophils (%) (Auto) 0% (0-3) Basophils (%) (Auto) 1% (0-3) Neutrophils # (Auto) 12.2x10^3uL (1.8-7.7) Lymphocytes # (Auto) 1.1x10^3/uL (1.0-4.8) Monocytes # (Auto) 0.9x10^3/uL (0.0-1.1) Eosinophils # (Auto) 0.0x10^3/uL (0.0-0.7) Basophils # (Auto) 0.1x10^3/uL (0.0-0.2) Sodium Level 139mmol/L (136-145) Potassium Level 4.6mmol/L (3.5-5.1) Chloride Level 99mmol/L (98-107) Carbon Dioxide Level 32mmol/L (21-32) Anion Gap 8 (6-14) Blood Urea Nitrogen 25mg/dL (7-20) Creatinine 1.0mg/dL (0.6-1.0) Estimated GFR (Cockcroft-Gault) 58.9 Glucose Level 150mg/dL (70-99) Calcium Level 8.7mg/dL (8.5-10.1) Medications Current Medications Albuterol/ Ipratropium (Duoneb) 6 ml 1X ONCE NEB Last administered on 22:03; Start 09/18/16 at 21:55; Stop 09/18/16 at 21:56; Status DC Methylprednisolone Sodium Succinate (Solu-Medrol 125mg Vial) 125 mg 1X ONCE IV Last administered on 09/18/16 22:08; Start 09/18/16 at 21:55; Stop 09/18/16 at 21:56; Status DC Furosemide (Lasix) 60 mg 1X ONCE IVP Last administered on 09/18/16 23:12; Start 09/18/16 at 23:15; Stop 09/18/16 at 23:16; Status DC Ondansetron HCl (Zofran) 4 mg PRN Q8HRS PRN IV NAUSEA/VOMITING; Start 09/18/16 at 23:15; Stop 09/19/16 at 23:14; Status DC Fentanyl Citrate 50 mcg 50 mcg PRN Q2HR PRN IV PAIN; Start 09/18/16 at 23:15; Stop 09/19/16 at 23:14; Status DC Sodium Chloride (Iv Sodium Chloride 0.9% 1000ml Bag) 1,000 ml @ 0 mls/hr Q0M IV ; Start 09/18/16 at 23:15; Stop 09/19/16 at 23:14; Status DC Acetaminophen (Tylenol) 650 mg PRN Q4HRS PRN PO FEVER; Start 09/18/16 at 23:15 ; Stop 09/19/16 at 23:14; Status DC Albuterol/ Ipratropium (Duoneb) 3 ml RTQID NEB Last administered on 09/20/16 07:39; Start 09/19/16 at 08:00; Stop 09/20/16 at 07:59; Status DC Metoprolol Tartrate (Lopressor) 5 mg Q6HRS IVP Last administered on 09/19/16 13:16; Start 09/19/16 at 12:00; Stop 09/19/16 at 13:52; Status DC Aspirin (Ecotrin) 81 mg DAILY PO Last administered on 09/20/16 08:24; Start at 14:00 Carvedilol (Coreg) 6.25 mg BID94 PO Last administered on 09/20/16 08:24; Start 09/19/16 at 16:00 Digoxin (Lanoxin) 250 mcg DAILY PO Last administered on 09/20/16 08:24; Start 09/19/16 at 14:00 Furosemide (Lasix) 40 mg BID92 IVP Last administered on 09/20/16 08:25; Start 09/19/16 at 14:00; Stop 09/20/16 at 12:01; Status DC Methylnaltrexone [place] (Relistor) 12 mg 1X ONCE SQ Last administered on 09/19 18:27; Start 09/19/16 at 15:00; Stop 09/19/16 at 15:01; Status DC Linaclotide (Linzess) 290 mcg DAILY07 PO ; Start 09/20/16 at 07:00; Stop at 07:00; Status DC Lubiprostone (Amitiza) 24 mcg BIDWMEALS PO Last administered on 09/20/16 08:00 ; Start 09/20/16 at 07:30 Sodium Cl/Sod Bicarb/Potass Cl/ PEG (Golytely) 4,000 ml 1X ONCE PO ; Start at 15:00; Stop 09/20/16 at 15:01 Acetaminophen (Tylenol) 650 mg PRN Q6HRS PRN PO MILD PAIN / TEMP Last administered on 09/20/16t 11:24; Start 09/20/16 at 11:00 Albuterol/ Ipratropium (Duoneb) 3 ml RTQID NEB ; Start 09/20/16 at 12:00 Furosemide (Lasix) 40 mg BID94 PO ; Start 09/20/16 at 16:00 Spironolactone (Aldactone) 25 mg DAILY PO ; Start 09/20/16 at 13:00 Lisinopril (Prinivil) 2.5 mg DAILY PO ; Start 09/20/16 at 13:00 Active Scripts Active Aldactone (Spironolactone) 25 Mg Tablet 25 Mg PO DAILY Reported Aspir 81 (Aspirin) 81 Mg Tablet.dr 1 Tab PO DAILY Linzess (Linaclotide) 290 Mcg Capsule 290 Mcg PO DAILY Stiolto Respimat Inhal [place] (Tiotropium Br/Olodaterol HCl) 4 Gm Mist.inhal 4 Gm IH PRN TID PRN Digoxin 250 Mcg Tablet 1 Tab PO DAILY Coreg (Carvedilol) 6.25 Mg Tablet 1 Tab PO BID Lasix (Furosemide) 40 Mg Tablet 40 Mg PO BID Indication: diuretic Next dose: 02/05/15 am Proair Hfa Inhaler (Albuterol Sulfate) 8.5 Gm Hfa.aer.ad 2 Puff IH PRN Q4-6HRS Indication: shortness of breath Next dose: as needed Albuterol Sulfate Neb Soln (Albuterol Sulfate) 2.5 Mg/3 Ml Vial.neb 1 Vial NEB PRN Q4HRS PRN Indication: shortness of breath Next dose: as needed Vitals/I & O Vital Sign - Last 24 Hours 09/19/16 09/19/16 09/19/16 09/19/16 13:16 15:00 16:33 16:43 Temp 98.1 98.1 Pulse 93 93 93 Resp 20 B/P 138/79 115/59 115/59 Pulse Ox 91 95 O2 Delivery Room Air Room Air 09/19/16 09/19/16 09/19/16 09/19/16 16:43 19:05 19:40 21:00 Temp 98.6 98.6 Pulse 93 84 Resp 20 B/P 115/59 126/76 Pulse Ox 96 91 O2 Delivery Room Air Room Air Nasal Cannula O2 Flow Rate 2.0 09/19/16 09/20/16 09/20/16 09/20/16 23:10 03:10 07:00 07:41 Temp 97.8 98.2 97.5 97.8 98.2 97.5 Pulse 89 96 100 Resp 20 18 B/P 128/69 153/117 141/85 Pulse Ox 94 95 97 93 O2 Delivery Nasal Cannula Nasal Cannula Room Air Room Air O2 Flow Rate 2.0 09/20/16 09/20/16 09/20/16 09/20/16 08:00 08:24 08:24 11:15 Temp 97.6 97.6 Pulse 100 100 83 Resp 20 B/P 141/85 141/85 102/67 Pulse Ox 93 O2 Delivery Nasal Cannula Room Air O2 Flow Rate 2.0 Intake and Output 09/19/16 09/19/16 09/20/16 15:00 23:00 07:00 Intake Total 400 ml 700 ml Output Total 400 ml Balance 0 ml 700 ml JORDANA HAY III DO Sep 20, 2016 12:38
[2016-09-20] MEDS: SPIRONOLACTONE 25 MG TABLET PO SCH (13:47)
[2016-09-20] MEDS: LISINOPRIL 2.5 MG TABLET PO SCH (13:47)
[2016-09-20 14:50] VITALS: BP 108/63
[2016-09-20] MEDS ORDERED: PEG 3350/NA SULF,BICARB,CL/KCL 4,000 ML SOLUTION. PO ONE (15:00)
[2016-09-20] MEDS: FUROSEMIDE 40 MG TABLET PO SCH (18:07)
[2016-09-20 19:05] VITALS: BP 97/72
[2016-09-20 23:51] VITALS: BP 107/64
[2016-09-21] VITALS (12 sets, daily range): BP systolic 103–139; BP diastolic 60–90
[2016-09-21 04:53] LABS: BASO # 0.1 x10^3/uL (0.0-0.2); BASO % 1 % (0-3); EOS % 1 % (0-3); HEMATOCRIT 51.5 % (36.0-47.0); HEMOGLOBIN 16.1 g/dL (12.0-15.5); LYMPH # 2.9 x10^3/uL (1.0-4.8); LYMPH % 25 % (24-48); MEAN CORPUSCULAR HEMOGLOBIN 29 pg (25-35); MEAN CORPUSCULAR HGB CONC 31 g/dL (31-37); MEAN CORPUSCULAR VOLUME 91 fL (79-100); MONO % 7 % (0-9); NEUT % 67 % (31-73); PLATELET COUNT 195 x10^3/uL (140-400); RED BLOOD COUNT 5.66 x10^6/uL (3.50-5.40); RED CELL DISTRIBUTION WIDTH 17.8 % (11.5-14.5); WHITE BLOOD COUNT 11.7 x10^3/uL (4.0-11.0)
[2016-09-21 05:13] LABS: CHOLESTEROL/HDL RATIO 5.3
[2016-09-21 05:16] LABS: CALCIUM 8.8 mg/dL (8.5-10.1); CREATININE 0.8 mg/dL (0.6-1.0); GFR 76.2; POTASSIUM 4.1 mmol/L (3.5-5.1)
[2016-09-21] MEDS: IPRATRPIUM/ALBUTEROL 0.5/2.5MG 3 ML NEBU. NEB SCH ×4 (06:52→21:52)
[2016-09-21] MEDS ORDERED: FENTANYL PF 100 MCG/2 ML VIAL. IV PRN ×2 (07:00)
[2016-09-21] MEDS ORDERED: MORPHINE SULFATE 2 MG/ML DISP.SYRIN. IV PRN (07:00)
[2016-09-21] MEDS ORDERED: PROCHLORPERAZINE 10 MG/2 ML VIAL. IV PRN (07:00)
[2016-09-21] MEDS ORDERED: ONDANSETRON PF 4 MG/2 ML VIAL. IV PRN (07:00)
[2016-09-21] MEDS ORDERED: LIDOCAINE 1% 1 ML SYRINGE. ID PRN (07:00)
[2016-09-21] MEDS ORDERED: HYDROMORPHONE 2 MG/ML VIAL. IV PRN (07:00)
[2016-09-21] MEDS ORDERED: IV RINGERS,LACTATED 1000ML 1,000 ML IV SCH (07:00)
[2016-09-21] MEDS: LUBIPROSTONE 8 MCG CAPSULE PO SCH ×2 (08:00→17:00)
[2016-09-21] MEDS ORDERED: FENTANYL PF 100 MCG/2 ML VIAL. ONE (08:58)
[2016-09-21] MEDS ORDERED: PROPOFOL 20 ML IV ONE ×2 (08:58→09:59)
[2016-09-21] MEDS ORDERED: LIDOCAINE 2% PF Vial for OR 5 ML VIAL. ONE (08:58)
[2016-09-21] MEDS: LISINOPRIL 2.5 MG TABLET PO SCH (09:00)
--- NOTE | 2016-09-21 10:51 | PDOC4 ---
Operative Note Operative Note EGD with bx Colonoscopy Meds propofol per anesthesia Pre-op dx diffuse abd pain/constipation/ nausea Post-op dx gastritis duodenitis s/p bx internal hemorrhoids Plan resume diet and titrate miralax to symptoms disposition plans per primary NAT NUNEZ MD Sep 21, 2016 10:51
[2016-09-21] MEDS: ASPIRIN ENTERIC COATED 81 MG TABLET.DR. PO SCH (12:23)
[2016-09-21] MEDS: DIGOXIN 250 MCG TABLET PO SCH (12:24)
[2016-09-21] MEDS: CARVEDILOL 6.25 MG TABLET PO SCH ×2 (12:24→16:27)
[2016-09-21] MEDS: SPIRONOLACTONE 25 MG TABLET PO SCH (12:24)
[2016-09-21] MEDS: FUROSEMIDE 40 MG TABLET PO SCH ×2 (12:25→16:27)
--- NOTE | 2016-09-21 12:34 | PDOC ---
PROGRESS NOTES Chief Complaint Chief Complaint Acute on chronic CHF Assessment - Acute on chronic systolic HF - Constipation/ abdominal pain - Dyspnea - Suspected COPD - Nonischemic cardiomyopathy - Hypertension - Hyperlipidemia - Tobacco abuse History of Present Illness History of Present Illness Ms. Pérez was recovering from EGD and colonoscopy on exam this morning. The patient was sedated, discussed procedure with RN. Vitals Vitals Vital Signs Date Time Temp Pulse Resp B/P Pulse Ox O2 Delivery O2 Flow Rate FiO2 09/21/16 12:16 95 130/81 09/21/16 11:34 16 93 Room Air 09/21/16 11:19 2 09/21/16 11:04 98.6 98.6 Physical Exam General: No acute distress, Other (post op, sedated ) Heart: Regular rate, Normal S1, Normal S2 Lungs: Clear Abdomen: Soft Extremities: No edema, Normal pulses Skin: No significant lesion Labs LABS Laboratory Tests Test 09/21/16 03:41 White Blood Count 11.7x10^3/uL (4.0-11.0) Red Blood Count 5.66x10^6/uL (3.50-5.40) Hemoglobin 16.1g/dL (12.0-15.5) Hematocrit 51.5% (36.0-47.0) Mean Corpuscular Volume 91fL (79-100) Mean Corpuscular Hemoglobin 29pg (25-35) Mean Corpuscular Hemoglobin Concent 31g/dL (31-37) Red Cell Distribution Width 17.8% (11.5-14.5) Platelet Count 195x10^3/uL (140-400) Neutrophils (%) (Auto) 67% (31-73) Lymphocytes (%) (Auto) 25% (24-48) Monocytes (%) (Auto) 7% (0-9) Eosinophils (%) (Auto) 1% (0-3) Basophils (%) (Auto) 1% (0-3) Neutrophils # (Auto) 7.8x10^3uL (1.8-7.7) Lymphocytes # (Auto) 2.9x10^3/uL (1.0-4.8) Monocytes # (Auto) 0.9x10^3/uL (0.0-1.1) Eosinophils # (Auto) 0.1x10^3/uL (0.0-0.7) Basophils # (Auto) 0.1x10^3/uL (0.0-0.2) Sodium Level 144mmol/L (136-145) Potassium Level 4.1mmol/L (3.5-5.1) Chloride Level 103mmol/L (98-107) Carbon Dioxide Level 33mmol/L (21-32) Anion Gap 8 (6-14) Blood Urea Nitrogen 27mg/dL (7-20) Creatinine 0.8mg/dL (0.6-1.0) Estimated GFR (Cockcroft-Gault) 76.2 Glucose Level 88mg/dL (70-99) Calcium Level 8.8mg/dL (8.5-10.1) Magnesium Level 2.0mg/dL (1.8-2.4) Triglycerides Level 107mg/dL (0-150) Cholesterol Level 133mg/dL (0-200) LDL Cholesterol, Calculated 87mg/dL (0-100) VLDL Cholesterol, Calculated 21mg/dL (0-40) HDL Cholesterol 25mg/dL (40-60) Cholesterol/HDL Ratio 5.3 Review of Systems Review of Systems Patient sedated, ROS not obtainable Assessment and Plan Assessmemt and Plan Assessment - Acute on chronic systolic HF - Constipation/ abdominal pain - Dyspnea - Suspected COPD - Nonischemic cardiomyopathy - Hypertension - Hyperlipidemia - Tobacco abuse Plan: -Colonoscopy and EGD complete. Awaiting biopsy report -Continue diuretics -Cardiology following for CHF -Pulmonology following for dyspnea/COPD -GI following for constipation/abdominal pain -Continue DuoNebs -Continue blood pressure management -Ordered Tylenol 650 mg for headache -Tobacco cessation -Appreciate subspecialist input Problems: Comment Review of Relevant I have reviewed the following items marva (where applicable) has been applied. Labs Laboratory Tests Test 09/20/16 09:00 09/21/16 03:41 White Blood Count 14.3x10^3/uL (4.0-11.0) 11.7x10^3/uL (4.0-11.0) Red Blood Count 5.79x10^6/uL (3.50-5.40) 5.66x10^6/uL (3.50-5.40) Hemoglobin 16.5g/dL (12.0-15.5) 16.1g/dL (12.0-15.5) Hematocrit 51.5% (36.0-47.0) 51.5% (36.0-47.0) Mean Corpuscular Volume 89fL (79-100) 91fL (79-100) Mean Corpuscular Hemoglobin 28pg (25-35) 29pg (25-35) Mean Corpuscular Hemoglobin Concent 32g/dL (31-37) 31g/dL (31-37) Red Cell Distribution Width 17.8% (11.5-14.5) 17.8% (11.5-14.5) Platelet Count 223x10^3/uL (140-400) 195x10^3/uL (140-400) Neutrophils (%) (Auto) 85% (31-73) 67% (31-73) Lymphocytes (%) (Auto) 8% (24-48) 25% (24-48) Monocytes (%) (Auto) 6% (0-9) 7% (0-9) Eosinophils (%) (Auto) 0% (0-3) 1% (0-3) Basophils (%) (Auto) 1% (0-3) 1% (0-3) Neutrophils # (Auto) 12.2x10^3uL (1.8-7.7) 7.8x10^3uL (1.8-7.7) Lymphocytes # (Auto) 1.1x10^3/uL (1.0-4.8) 2.9x10^3/uL (1.0-4.8) Monocytes # (Auto) 0.9x10^3/uL (0.0-1.1) 0.9x10^3/uL (0.0-1.1) Eosinophils # (Auto) 0.0x10^3/uL (0.0-0.7) 0.1x10^3/uL (0.0-0.7) Basophils # (Auto) 0.1x10^3/uL (0.0-0.2) 0.1x10^3/uL (0.0-0.2) Sodium Level 139mmol/L (136-145) 144mmol/L (136-145) Potassium Level 4.6mmol/L (3.5-5.1) 4.1mmol/L (3.5-5.1) Chloride Level 99mmol/L (98-107) 103mmol/L (98-107) Carbon Dioxide Level 32mmol/L (21-32) 33mmol/L (21-32) Anion Gap 8 (6-14) 8 (6-14) Blood Urea Nitrogen 25mg/dL (7-20) 27mg/dL (7-20) Creatinine 1.0mg/dL (0.6-1.0) 0.8mg/dL (0.6-1.0) Estimated GFR (Cockcroft-Gault) 58.9 76.2 Glucose Level 150mg/dL (70-99) 88mg/dL (70-99) Calcium Level 8.7mg/dL (8.5-10.1) 8.8mg/dL (8.5-10.1) Magnesium Level 2.0mg/dL (1.8-2.4) Triglycerides Level 107mg/dL (0-150) Cholesterol Level 133mg/dL (0-200) LDL Cholesterol, Calculated 87mg/dL (0-100) VLDL Cholesterol, Calculated 21mg/dL (0-40) HDL Cholesterol 25mg/dL (40-60) Cholesterol/HDL Ratio 5.3 Laboratory Tests Test 09/21/16 03:41 White Blood Count 11.7x10^3/uL (4.0-11.0) Red Blood Count 5.66x10^6/uL (3.50-5.40) Hemoglobin 16.1g/dL (12.0-15.5) Hematocrit 51.5% (36.0-47.0) Mean Corpuscular Volume 91fL (79-100) Mean Corpuscular Hemoglobin 29pg (25-35) Mean Corpuscular Hemoglobin Concent 31g/dL (31-37) Red Cell Distribution Width 17.8% (11.5-14.5) Platelet Count 195x10^3/uL (140-400) Neutrophils (%) (Auto) 67% (31-73) Lymphocytes (%) (Auto) 25% (24-48) Monocytes (%) (Auto) 7% (0-9) Eosinophils (%) (Auto) 1% (0-3) Basophils (%) (Auto) 1% (0-3) Neutrophils # (Auto) 7.8x10^3uL (1.8-7.7) Lymphocytes # (Auto) 2.9x10^3/uL (1.0-4.8) Monocytes # (Auto) 0.9x10^3/uL (0.0-1.1) Eosinophils # (Auto) 0.1x10^3/uL (0.0-0.7) Basophils # (Auto) 0.1x10^3/uL (0.0-0.2) Sodium Level 144mmol/L (136-145) Potassium Level 4.1mmol/L (3.5-5.1) Chloride Level 103mmol/L (98-107) Carbon Dioxide Level 33mmol/L (21-32) Anion Gap 8 (6-14) Blood Urea Nitrogen 27mg/dL (7-20) Creatinine 0.8mg/dL (0.6-1.0) Estimated GFR (Cockcroft-Gault) 76.2 Glucose Level 88mg/dL (70-99) Calcium Level 8.8mg/dL (8.5-10.1) Magnesium Level 2.0mg/dL (1.8-2.4) Triglycerides Level 107mg/dL (0-150) Cholesterol Level 133mg/dL (0-200) LDL Cholesterol, Calculated 87mg/dL (0-100) VLDL Cholesterol, Calculated 21mg/dL (0-40) HDL Cholesterol 25mg/dL (40-60) Cholesterol/HDL Ratio 5.3 Medications Current Medications Albuterol/ Ipratropium (Duoneb) 6 ml 1X ONCE NEB Last administered on 22:03; Start 09/18/16 at 21:55; Stop 09/18/16 at 21:56; Status DC Methylprednisolone Sodium Succinate (Solu-Medrol 125mg Vial) 125 mg 1X ONCE IV Last administered on 09/18/16 22:08; Start 09/18/16 at 21:55; Stop 09/18/16 at 21:56; Status DC Furosemide (Lasix) 60 mg 1X ONCE IVP Last administered on 09/18/16 23:12; Start 09/18/16 at 23:15; Stop 09/18/16 at 23:16; Status DC Ondansetron HCl (Zofran) 4 mg PRN Q8HRS PRN IV NAUSEA/VOMITING; Start 09/18/16 at 23:15; Stop 09/19/16 at 23:14; Status DC Fentanyl Citrate 50 mcg 50 mcg PRN Q2HR PRN IV PAIN; Start 09/18/16 at 23:15; Stop 09/19/16 at 23:14; Status DC Sodium Chloride (Iv Sodium Chloride 0.9% 1000ml Bag) 1,000 ml @ 0 mls/hr Q0M IV ; Start 09/18/16 at 23:15; Stop 09/19/16 at 23:14; Status DC Acetaminophen (Tylenol) 650 mg PRN Q4HRS PRN PO FEVER; Start 09/18/16 at 23:15 ; Stop 09/19/16 at 23:14; Status DC Albuterol/ Ipratropium (Duoneb) 3 ml RTQID NEB Last administered on 09/20/16 07:39; Start 09/19/16 at 08:00; Stop 09/20/16 at 07:59; Status DC Metoprolol Tartrate (Lopressor) 5 mg Q6HRS IVP Last administered on 09/19/16 13:16; Start 09/19/16 at 12:00; Stop 09/19/16 at 13:52; Status DC Aspirin (Ecotrin) 81 mg DAILY PO Last administered on 09/20/16 08:24; Start at 14:00 Carvedilol (Coreg) 6.25 mg BID94 PO Last administered on 09/20/16 18:08; Start 09/19/16 at 16:00 Digoxin (Lanoxin) 250 mcg DAILY PO Last administered on 09/20/16 08:24; Start 09/19/16 at 14:00 Furosemide (Lasix) 40 mg BID92 IVP Last administered on 09/20/16 08:25; Start 09/19/16 at 14:00; Stop 09/20/16 at 12:01; Status DC Methylnaltrexone [place] (Relistor) 12 mg 1X ONCE SQ Last administered on 09/19 18:27; Start 09/19/16 at 15:00; Stop 09/19/16 at 15:01; Status DC Linaclotide (Linzess) 290 mcg DAILY07 PO ; Start 09/20/16 at 07:00; Stop at 07:00; Status DC Lubiprostone (Amitiza) 24 mcg BIDWMEALS PO Last administered on 09/20/16 18:07 ; Start 09/20/16 at 07:30 Sodium Cl/Sod Bicarb/Potass Cl/ PEG (Golytely) 4,000 ml 1X ONCE PO Last administered on 09/20/16 15:25; Start 09/20/16 at 15:00; Stop 09/20/16 at 15:01 ; Status DC Acetaminophen (Tylenol) 650 mg PRN Q6HRS PRN PO MILD PAIN / TEMP Last administered on 09/20/16 11:24; Start 09/20/16 at 11:00 Albuterol/ Ipratropium (Duoneb) 3 ml RTQID NEB Last administered on 09/21/16 06:52; Start 09/20/16 at 12:00 Furosemide (Lasix) 40 mg [id number] PO Last administered on 09/20/16 18:07; Start 09/20/16 at 16:00 Spironolactone (Aldactone) 25 mg DAILY PO Last administered on 09/20/16 13:47 ; Start 09/20/16 at 13:00 Lisinopril (Prinivil) 2.5 mg DAILY PO Last administered on 09/20/16 13:47; Start 09/20/16 at 13:00 Ondansetron HCl (Zofran) 4 mg PRN Q6HRS PRN IV Nausea; Start 09/21/16 at 07:00 ; Stop 09/22/16 at 06:59 Fentanyl Citrate (Fentanyl 2ml Vial) 25 mcg PRN Q5MIN PRN IV MILD PAIN; Start 09/21/16 at 07:00; Stop 09/22/16 at 06:59 Fentanyl Citrate (Fentanyl 2ml Vial) 50 mcg PRN Q5MIN PRN IV MODERATE PAIN; Start 09/21/16 at 07:00; Stop 09/22/16 at 06:59 Morphine Sulfate 1 mg 1 mg PRN Q10MIN PRN IV SEVERE PAIN; Start 09/21/16 at 07: 00; Stop 09/22/16 at 06:59 Lactated Ringer's (Iv Lactated Ringers) 1,000 ml @ 30 mls/hr Q24H IV Last administered on 09/21/16t 09:52; Start 09/21/16 at 07:00; Stop 09/21/16 at 18:59 Lidocaine HCl 2 ml 1X PRN PRN ID IV START; Start 09/21/16 at 07:00; Stop at 06:59 Hydromorphone HCl (Dilaudid) 0.5 mg PRN Q10MIN PRN IV SEVERE PAIN, Second choice; Start 09/21/16 at 07:00; Stop 09/22/16 at 06:59 Prochlorperazine Edisylate (Compazine) 5 mg PACU PRN PRN IV NAUSEA; Start 09/21 at 07:00; Stop 09/22/16 at 06:59 Fentanyl Citrate 100 mcg 100 mcg STK-MED ONCE .ROUTE ; Start 09/21/16 at 08:58; Stop 09/21/16 at 08:59; Status DC Propofol (Diprivan) 20 ml @ As Directed STK-MED ONCE IV ; Start 09/21/16 at 08: 58; Stop 09/21/16 at 08:59; Status DC Lidocaine HCl 5 ml 5 ml STK-MED ONCE .ROUTE ; Start 09/21/16 at 08:58; Stop at 08:59; Status DC Propofol (Diprivan) 20 ml @ As Directed STK-MED ONCE IV ; Start 09/21/16 at 09: 59; Stop 09/21/16 at 10:00; Status DC Active Scripts Active Aldactone (Spironolactone) 25 Mg Tablet 25 Mg PO DAILY Reported Aspir 81 (Aspirin) 81 Mg Tablet.dr 1 Tab PO DAILY Linzess (Linaclotide) 290 Mcg Capsule 290 Mcg PO DAILY Stiolto Respimat Inhal [place] (Tiotropium Br/Olodaterol HCl) 4 Gm Mist.inhal 4 Gm IH PRN TID PRN Digoxin 250 Mcg Tablet 1 Tab PO DAILY Coreg (Carvedilol) 6.25 Mg Tablet 1 Tab PO BID Lasix (Furosemide) 40 Mg Tablet 40 Mg PO BID Indication: diuretic Next dose: 02/05/15 am Proair Hfa Inhaler (Albuterol Sulfate) 8.5 Gm Hfa.aer.ad 2 Puff IH PRN Q4-6HRS Indication: shortness of breath Next dose: as needed Albuterol Sulfate Neb Soln (Albuterol Sulfate) 2.5 Mg/3 Ml Vial.neb 1 Vial NEB PRN Q4HRS PRN Indication: shortness of breath Next dose: as needed Vitals/I & O Vital Sign - Last 24 Hours 09/20/16 09/20/16 09/20/16 09/20/16 13:47 14:50 18:08 19:05 Temp 97.5 97.5 Pulse 83 91 91 81 Resp 20 20 B/P 102/67 108/63 108/63 97/72 Pulse Ox 93 96 O2 Delivery Room Air Room Air 09/20/16 09/20/16 09/20/16 09/21/16 20:56 21:00 23:51 03:25 Temp 97.3 98.4 97.3 98.4 Pulse 78 109 Resp 20 18 B/P 107/64 108/60 Pulse Ox 94 98 93 O2 Delivery Room Air Room Air Room Air Room Air 09/21/16 09/21/16 09/21/16 09/21/16 06:52 07:17 08:00 09:42 Temp 97.4 98.2 97.4 98.2 Pulse 97 91 Resp 18 20 B/P 118/70 Pulse Ox 100 96 97 O2 Delivery Room Air Nasal Cannula Room Air O2 Flow Rate 2.0 2.0 09/21/16 09/21/16 09/21/16 09/21/16 10:49 11:04 11:19 11:34 Temp 96.9 98.6 96.9 98.6 Pulse 16 87 90 87 Resp 12 14 16 16 B/P 104/66 114/71 131/77 138/88 Pulse Ox 92 90 92 93 O2 Delivery Nasal Cannula Nasal Cannula Nasal Cannula Room Air O2 Flow Rate 5 2 2 09/21/16 12:16 Pulse 95 B/P 130/81 Intake and Output 09/20/16 09/20/16 09/21/16 15:00 23:00 07:00 Intake Total 1360 ml 1400 ml Balance 1360 ml 1400 ml JORDANA HAY III DO Sep 21, 2016 12:34
[2016-09-21] MEDS ORDERED: PHENYLEPHRINE in 0.9% NACL PF 1 MG/10 ML DISP.SYRIN. IV ONE (13:20)
--- NOTE | 2016-09-21 15:46 | PDOC ---
PULMONARY PROGRESS NOTES Subjective no soa Vitals Vital Signs Date Time Temp Pulse Resp B/P Pulse Ox O2 Delivery O2 Flow Rate FiO2 09/21/16 15:26 90 Room Air 09/21/16 14:56 86 125/74 09/21/16 11:34 16 09/21/16 11:19 2 09/21/16 11:04 98.6 98.6 General: Alert Lungs: Clear Cardiovascular: S1, S2 Abdomen: Soft Neuro Exam: Alert Extremities: No Edema Skin: Warm Labs Laboratory Tests Test 09/20/16 09:00 09/21/16 03:41 White Blood Count 14.3x10^3/uL (4.0-11.0) 11.7x10^3/uL (4.0-11.0) Red Blood Count 5.79x10^6/uL (3.50-5.40) 5.66x10^6/uL (3.50-5.40) Hemoglobin 16.5g/dL (12.0-15.5) 16.1g/dL (12.0-15.5) Hematocrit 51.5% (36.0-47.0) 51.5% (36.0-47.0) Mean Corpuscular Volume 89fL (79-100) 91fL (79-100) Mean Corpuscular Hemoglobin 28pg (25-35) 29pg (25-35) Mean Corpuscular Hemoglobin Concent 32g/dL (31-37) 31g/dL (31-37) Red Cell Distribution Width 17.8% (11.5-14.5) 17.8% (11.5-14.5) Platelet Count 223x10^3/uL (140-400) 195x10^3/uL (140-400) Neutrophils (%) (Auto) 85% (31-73) 67% (31-73) Lymphocytes (%) (Auto) 8% (24-48) 25% (24-48) Monocytes (%) (Auto) 6% (0-9) 7% (0-9) Eosinophils (%) (Auto) 0% (0-3) 1% (0-3) Basophils (%) (Auto) 1% (0-3) 1% (0-3) Neutrophils # (Auto) 12.2x10^3uL (1.8-7.7) 7.8x10^3uL (1.8-7.7) Lymphocytes # (Auto) 1.1x10^3/uL (1.0-4.8) 2.9x10^3/uL (1.0-4.8) Monocytes # (Auto) 0.9x10^3/uL (0.0-1.1) 0.9x10^3/uL (0.0-1.1) Eosinophils # (Auto) 0.0x10^3/uL (0.0-0.7) 0.1x10^3/uL (0.0-0.7) Basophils # (Auto) 0.1x10^3/uL (0.0-0.2) 0.1x10^3/uL (0.0-0.2) Sodium Level 139mmol/L (136-145) 144mmol/L (136-145) Potassium Level 4.6mmol/L (3.5-5.1) 4.1mmol/L (3.5-5.1) Chloride Level 99mmol/L (98-107) 103mmol/L (98-107) Carbon Dioxide Level 32mmol/L (21-32) 33mmol/L (21-32) Anion Gap 8 (6-14) 8 (6-14) Blood Urea Nitrogen 25mg/dL (7-20) 27mg/dL (7-20) Creatinine 1.0mg/dL (0.6-1.0) 0.8mg/dL (0.6-1.0) Estimated GFR (Cockcroft-Gault) 58.9 76.2 Glucose Level 150mg/dL (70-99) 88mg/dL (70-99) Calcium Level 8.7mg/dL (8.5-10.1) 8.8mg/dL (8.5-10.1) Magnesium Level 2.0mg/dL (1.8-2.4) Triglycerides Level 107mg/dL (0-150) Cholesterol Level 133mg/dL (0-200) LDL Cholesterol, Calculated 87mg/dL (0-100) VLDL Cholesterol, Calculated 21mg/dL (0-40) HDL Cholesterol 25mg/dL (40-60) Cholesterol/HDL Ratio 5.3 Laboratory Tests Test 09/21/16 03:41 White Blood Count 11.7x10^3/uL (4.0-11.0) Red Blood Count 5.66x10^6/uL (3.50-5.40) Hemoglobin 16.1g/dL (12.0-15.5) Hematocrit 51.5% (36.0-47.0) Mean Corpuscular Volume 91fL (79-100) Mean Corpuscular Hemoglobin 29pg (25-35) Mean Corpuscular Hemoglobin Concent 31g/dL (31-37) Red Cell Distribution Width 17.8% (11.5-14.5) Platelet Count 195x10^3/uL (140-400) Neutrophils (%) (Auto) 67% (31-73) Lymphocytes (%) (Auto) 25% (24-48) Monocytes (%) (Auto) 7% (0-9) Eosinophils (%) (Auto) 1% (0-3) Basophils (%) (Auto) 1% (0-3) Neutrophils # (Auto) 7.8x10^3uL (1.8-7.7) Lymphocytes # (Auto) 2.9x10^3/uL (1.0-4.8) Monocytes # (Auto) 0.9x10^3/uL (0.0-1.1) Eosinophils # (Auto) 0.1x10^3/uL (0.0-0.7) Basophils # (Auto) 0.1x10^3/uL (0.0-0.2) Sodium Level 144mmol/L (136-145) Potassium Level 4.1mmol/L (3.5-5.1) Chloride Level 103mmol/L (98-107) Carbon Dioxide Level 33mmol/L (21-32) Anion Gap 8 (6-14) Blood Urea Nitrogen 27mg/dL (7-20) Creatinine 0.8mg/dL (0.6-1.0) Estimated GFR (Cockcroft-Gault) 76.2 Glucose Level 88mg/dL (70-99) Calcium Level 8.8mg/dL (8.5-10.1) Magnesium Level 2.0mg/dL (1.8-2.4) Triglycerides Level 107mg/dL (0-150) Cholesterol Level 133mg/dL (0-200) LDL Cholesterol, Calculated 87mg/dL (0-100) VLDL Cholesterol, Calculated 21mg/dL (0-40) HDL Cholesterol 25mg/dL (40-60) Cholesterol/HDL Ratio 5.3 Medications Active Scripts Medications Dose Route/Sig Days Date Category Dose Instructions Aspir 81 (Aspirin) 81 Mg Tablet.dr 1 Tab PO DAILY 09/19/16 Reported Linzess (Linaclotide) 290 Mcg Capsule 290 Mcg PO DAILY 06/30/16 Reported Stiolto Respimat Inhal [place] (Tiotropium Br/Olodaterol HCl) 4 Gm Mist.inhal 4 Gm IH PRN TID PRN 06/30/16 Reported Aldactone (Spironolactone) 25 Mg Tablet 25 Mg PO DAILY 08/10/15 Rx Digoxin 250 Mcg Tablet 1 Tab PO DAILY 02/08/15 Reported Coreg (Carvedilol) 6.25 Mg Tablet 1 Tab PO BID 02/08/15 Reported Lasix (Furosemide) 40 Mg Tablet 40 Mg PO BID 01/04/15 Reported Indication: diuretic Next dose: 02/05/15 am Proair Hfa Inhaler (Albuterol Sulfate) 8.5 Gm Hfa.aer.ad 2 Puff IH PRN Q4-6HRS 11/03/14 Reported Indication: shortness of breath Next dose: as needed Albuterol Sulfate Neb Soln (Albuterol Sulfate) 2.5 Mg/3 Ml Vial.neb 1 Vial NEB PRN Q4HRS PRN 11/03/14 Reported Indication: shortness of breath Next dose: as needed Impression . 1. Dyspnea secondary to [id number] systolic heart failure. 2. Severe cardiomyopathy with an EF of 15%, with severe global hypokinesis of the left ventricle. Status post defibrillator. 3. Suspected underlying chronic obstructive pulmonary disease: Could be moderate, with ongoing tobaccoism. Plan . 1. diuresis. To be managed by Cardiology. 2. From a pulmonary standpoint, I have given her counseling for tobacco cessation. 3. We will continue with present DuoNebs. 4. Currently, she does not have any wheezing and okay to continue with metoprolol. 5. Follow Cardiology recommendations. 6. Discussed with RN. DEENA AGUERO MD Sep 21, 2016 15:46
[2016-09-22 03:54] VITALS: BP 124/90
[2016-09-22 04:30] LABS: BASO # 0.1 x10^3/uL (0.0-0.2); BASO % 1 % (0-3); EOS % 2 % (0-3); HEMATOCRIT 50.4 % (36.0-47.0); HEMOGLOBIN 15.7 g/dL (12.0-15.5); LYMPH # 2.7 x10^3/uL (1.0-4.8); LYMPH % 27 % (24-48); MEAN CORPUSCULAR HEMOGLOBIN 28 pg (25-35); MEAN CORPUSCULAR HGB CONC 31 g/dL (31-37); MEAN CORPUSCULAR VOLUME 91 fL (79-100); MONO % 10 % (0-9); NEUT % 61 % (31-73); PLATELET COUNT 189 x10^3/uL (140-400); RED BLOOD COUNT 5.57 x10^6/uL (3.50-5.40); RED CELL DISTRIBUTION WIDTH 18.1 % (11.5-14.5)
[2016-09-22 04:38] LABS: CALCIUM 8.2 mg/dL (8.5-10.1); CREATININE 0.9 mg/dL (0.6-1.0); GFR 66.5; POTASSIUM 4.2 mmol/L (3.5-5.1)
[2016-09-22 07:50] VITALS: BP 126/74
[2016-09-22] MEDS: IPRATRPIUM/ALBUTEROL 0.5/2.5MG 3 ML NEBU. NEB SCH ×2 (07:51→11:43)
[2016-09-22] MEDS: LUBIPROSTONE 8 MCG CAPSULE PO SCH (08:47)
[2016-09-22] MEDS: SPIRONOLACTONE 25 MG TABLET PO SCH (08:47)
[2016-09-22] MEDS: FUROSEMIDE 40 MG TABLET PO SCH (08:47)
[2016-09-22] MEDS: LISINOPRIL 2.5 MG TABLET PO SCH (08:47)
[2016-09-22] MEDS: DIGOXIN 250 MCG TABLET PO SCH (08:48)
[2016-09-22] MEDS: CARVEDILOL 6.25 MG TABLET PO SCH (08:48)
[2016-09-22] MEDS: ASPIRIN ENTERIC COATED 81 MG TABLET.DR. PO SCH (08:48)
[2016-09-22 10:57] VITALS: BP 128/64
--- NOTE | 2016-09-22 12:00 | PDOC ---
PROGRESS NOTES Chief Complaint Chief Complaint Acute on chronic CHF Assessment - Acute on chronic systolic HF - Constipation/ abdominal pain - Dyspnea - Suspected COPD - Nonischemic cardiomyopathy - Hypertension - Hyperlipidemia - Tobacco abuse History of Present Illness History of Present Illness Ms. Pérez was resting comfortably in bed on exam this morning. Discussed her EGD results yesterday as well as the input from cardiology and GI. She states she would like to go home, and we will proceed with discharge. Vitals Vitals Vital Signs Date Time Temp Pulse Resp B/P Pulse Ox O2 Delivery O2 Flow Rate FiO2 09/22/16 11:43 86 Nasal Cannula 2.0 09/22/16 10:57 97.9 90 20 128/64 97.9 Physical Exam General: Alert, Oriented X3, Cooperative, No acute distress Heart: Regular rate, Normal S1, Normal S2 Lungs: Clear, Other (No wheezes/crackles) Abdomen: Normal bowel sounds, Soft, No tenderness Extremities: No clubbing, No cyanosis, No edema Skin: No rashes, No significant lesion Labs LABS Laboratory Tests Test 09/22/16 03:40 White Blood Count 10.0x10^3/uL (4.0-11.0) Red Blood Count 5.57x10^6/uL (3.50-5.40) Hemoglobin 15.7g/dL (12.0-15.5) Hematocrit 50.4% (36.0-47.0) Mean Corpuscular Volume 91fL (79-100) Mean Corpuscular Hemoglobin 28pg (25-35) Mean Corpuscular Hemoglobin Concent 31g/dL (31-37) Red Cell Distribution Width 18.1% (11.5-14.5) Platelet Count 189x10^3/uL (140-400) Neutrophils (%) (Auto) 61% (31-73) Lymphocytes (%) (Auto) 27% (24-48) Monocytes (%) (Auto) 10% (0-9) Eosinophils (%) (Auto) 2% (0-3) Basophils (%) (Auto) 1% (0-3) Neutrophils # (Auto) 6.1x10^3uL (1.8-7.7) Lymphocytes # (Auto) 2.7x10^3/uL (1.0-4.8) Monocytes # (Auto) 1.0x10^3/uL (0.0-1.1) Eosinophils # (Auto) 0.2x10^3/uL (0.0-0.7) Basophils # (Auto) 0.1x10^3/uL (0.0-0.2) Sodium Level 139mmol/L (136-145) Potassium Level 4.2mmol/L (3.5-5.1) Chloride Level 100mmol/L (98-107) Carbon Dioxide Level 32mmol/L (21-32) Anion Gap 7 (6-14) Blood Urea Nitrogen 29mg/dL (7-20) Creatinine 0.9mg/dL (0.6-1.0) Estimated GFR (Cockcroft-Gault) 66.5 Glucose Level 91mg/dL (70-99) Calcium Level 8.2mg/dL (8.5-10.1) Review of Systems Review of Systems Breathing improved Denies diarrhea Denies nausea/vomiting Assessment and Plan Assessmemt and Plan Assessment - Acute on chronic systolic HF - Constipation/ abdominal pain - Pulmonary edema - Moderate protein malnutrition - Dyspnea - Suspected COPD - Nonischemic cardiomyopathy - Elevated troponin - Hypertension - Hyperlipidemia - Tobacco abuse Plan: - Colonoscopy and EGD complete. Discussed results and GI recommendations to use Miralax - Patient appears stable from GI and cardiology standpoint - Continue DuoNebs as needed - Continue blood pressure management - Encouraged tobacco cessation - Recheck labs if unable to discharge - Appreciate subspecialist input - Will proceed with discharge today Problems: Comment Review of Relevant I have reviewed the following items marva (where applicable) has been applied. Labs Laboratory Tests Test 09/21/16 03:41 09/22/16 03:40 White Blood Count 11.7x10^3/uL (4.0-11.0) 10.0x10^3/uL (4.0-11.0) Red Blood Count 5.66x10^6/uL (3.50-5.40) 5.57x10^6/uL (3.50-5.40) Hemoglobin 16.1g/dL (12.0-15.5) 15.7g/dL (12.0-15.5) Hematocrit 51.5% (36.0-47.0) 50.4% (36.0-47.0) Mean Corpuscular Volume 91fL (79-100) 91fL (79-100) Mean Corpuscular Hemoglobin 29pg (25-35) 28pg (25-35) Mean Corpuscular Hemoglobin Concent 31g/dL (31-37) 31g/dL (31-37) Red Cell Distribution Width 17.8% (11.5-14.5) 18.1% (11.5-14.5) Platelet Count 195x10^3/uL (140-400) 189x10^3/uL (140-400) Neutrophils (%) (Auto) 67% (31-73) 61% (31-73) Lymphocytes (%) (Auto) 25% (24-48) 27% (24-48) Monocytes (%) (Auto) 7% (0-9) 10% (0-9) Eosinophils (%) (Auto) 1% (0-3) 2% (0-3) Basophils (%) (Auto) 1% (0-3) 1% (0-3) Neutrophils # (Auto) 7.8x10^3uL (1.8-7.7) 6.1x10^3uL (1.8-7.7) Lymphocytes # (Auto) 2.9x10^3/uL (1.0-4.8) 2.7x10^3/uL (1.0-4.8) Monocytes # (Auto) 0.9x10^3/uL (0.0-1.1) 1.0x10^3/uL (0.0-1.1) Eosinophils # (Auto) 0.1x10^3/uL (0.0-0.7) 0.2x10^3/uL (0.0-0.7) Basophils # (Auto) 0.1x10^3/uL (0.0-0.2) 0.1x10^3/uL (0.0-0.2) Sodium Level 144mmol/L (136-145) 139mmol/L (136-145) Potassium Level 4.1mmol/L (3.5-5.1) 4.2mmol/L (3.5-5.1) Chloride Level 103mmol/L (98-107) 100mmol/L (98-107) Carbon Dioxide Level 33mmol/L (21-32) 32mmol/L (21-32) Anion Gap 8 (6-14) 7 (6-14) Blood Urea Nitrogen 27mg/dL (7-20) 29mg/dL (7-20) Creatinine 0.8mg/dL (0.6-1.0) 0.9mg/dL (0.6-1.0) Estimated GFR (Cockcroft-Gault) 76.2 66.5 Glucose Level 88mg/dL (70-99) 91mg/dL (70-99) Calcium Level 8.8mg/dL (8.5-10.1) 8.2mg/dL (8.5-10.1) Magnesium Level 2.0mg/dL (1.8-2.4) Triglycerides Level 107mg/dL (0-150) Cholesterol Level 133mg/dL (0-200) LDL Cholesterol, Calculated 87mg/dL (0-100) VLDL Cholesterol, Calculated 21mg/dL (0-40) HDL Cholesterol 25mg/dL (40-60) Cholesterol/HDL Ratio 5.3 Laboratory Tests Test 09/22/16 03:40 White Blood Count 10.0x10^3/uL (4.0-11.0) Red Blood Count 5.57x10^6/uL (3.50-5.40) Hemoglobin 15.7g/dL (12.0-15.5) Hematocrit 50.4% (36.0-47.0) Mean Corpuscular Volume 91fL (79-100) Mean Corpuscular Hemoglobin 28pg (25-35) Mean Corpuscular Hemoglobin Concent 31g/dL (31-37) Red Cell Distribution Width 18.1% (11.5-14.5) Platelet Count 189x10^3/uL (140-400) Neutrophils (%) (Auto) 61% (31-73) Lymphocytes (%) (Auto) 27% (24-48) Monocytes (%) (Auto) 10% (0-9) Eosinophils (%) (Auto) 2% (0-3) Basophils (%) (Auto) 1% (0-3) Neutrophils # (Auto) 6.1x10^3uL (1.8-7.7) Lymphocytes # (Auto) 2.7x10^3/uL (1.0-4.8) Monocytes # (Auto) 1.0x10^3/uL (0.0-1.1) Eosinophils # (Auto) 0.2x10^3/uL (0.0-0.7) Basophils # (Auto) 0.1x10^3/uL (0.0-0.2) Sodium Level 139mmol/L (136-145) Potassium Level 4.2mmol/L (3.5-5.1) Chloride Level 100mmol/L (98-107) Carbon Dioxide Level 32mmol/L (21-32) Anion Gap 7 (6-14) Blood Urea Nitrogen 29mg/dL (7-20) Creatinine 0.9mg/dL (0.6-1.0) Estimated GFR (Cockcroft-Gault) 66.5 Glucose Level 91mg/dL (70-99) Calcium Level 8.2mg/dL (8.5-10.1) Medications Current Medications Albuterol/ Ipratropium (Duoneb) 6 ml 1X ONCE NEB Last administered on 22:03; Start 09/18/16 at 21:55; Stop 09/18/16 at 21:56; Status DC Methylprednisolone Sodium Succinate (Solu-Medrol 125mg Vial) 125 mg 1X ONCE IV Last administered on 09/18/16 22:08; Start 09/18/16 at 21:55; Stop 09/18/16 at 21:56; Status DC Furosemide (Lasix) 60 mg 1X ONCE IVP Last administered on 09/18/16 23:12; Start 09/18/16 at 23:15; Stop 09/18/16 at 23:16; Status DC Ondansetron HCl (Zofran) 4 mg PRN Q8HRS PRN IV NAUSEA/VOMITING; Start 09/18/16 at 23:15; Stop 09/19/16 at 23:14; Status DC Fentanyl Citrate 50 mcg 50 mcg PRN Q2HR PRN IV PAIN; Start 09/18/16 at 23:15; Stop 09/19/16 at 23:14; Status DC Sodium Chloride (Iv Sodium Chloride 0.9% 1000ml Bag) 1,000 ml @ 0 mls/hr Q0M IV ; Start 09/18/16 at 23:15; Stop 09/19/16 at 23:14; Status DC Acetaminophen (Tylenol) 650 mg PRN Q4HRS PRN PO FEVER; Start 09/18/16 at 23:15 ; Stop 09/19/16 at 23:14; Status DC Albuterol/ Ipratropium (Duoneb) 3 ml RTQID NEB Last administered on 09/20/16 07:39; Start 09/19/16 at 08:00; Stop 09/20/16 at 07:59; Status DC Metoprolol Tartrate (Lopressor) 5 mg Q6HRS IVP Last administered on 09/19/16 13:16; Start 09/19/16 at 12:00; Stop 09/19/16 at 13:52; Status DC Aspirin (Ecotrin) 81 mg DAILY PO Last administered on 09/22/16 08:48; Start at 14:00 Carvedilol (Coreg) 6.25 mg [id number] PO Last administered on 09/22/16 08:48; Start 09/19/16 at 16:00 Digoxin (Lanoxin) 250 mcg DAILY PO Last administered on 09/22/16 08:48; Start 09/19/16 at 14:00 Furosemide (Lasix) 40 mg BID92 IVP Last administered on 09/20/16 08:25; Start 09/19/16 at 14:00; Stop 09/20/16 at 12:01; Status DC Methylnaltrexone [place] (Relistor) 12 mg 1X ONCE SQ Last administered on 09/19 18:27; Start 09/19/16 at 15:00; Stop 09/19/16 at 15:01; Status DC Linaclotide (Linzess) 290 mcg DAILY07 PO ; Start 09/20/16 at 07:00; Stop at 07:00; Status DC Lubiprostone (Amitiza) 24 mcg BIDWMEALS PO Last administered on 09/22/16 08:47 ; Start 09/20/16 at 07:30 Sodium Cl/Sod Bicarb/Potass Cl/ PEG (Golytely) 4,000 ml 1X ONCE PO Last administered on 09/20/16 15:25; Start 09/20/16 at 15:00; Stop 09/20/16 at 15:01 ; Status DC Acetaminophen (Tylenol) 650 mg PRN Q6HRS PRN PO MILD PAIN / TEMP Last administered on 09/20/16 11:24; Start 09/20/16 at 11:00 Albuterol/ Ipratropium (Duoneb) 3 ml RTQID NEB Last administered on 09/22/16 11:43; Start 09/20/16 at 12:00 Furosemide (Lasix) 40 mg BID94 PO Last administered on 09/22/16 08:47; Start 09/20/16 at 16:00 Spironolactone (Aldactone) 25 mg DAILY PO Last administered on 09/22/16 08:47 ; Start 09/20/16 at 13:00 Lisinopril (Prinivil) 2.5 mg DAILY PO Last administered on 09/22/16 08:47; Start 09/20/16 at 13:00 Ondansetron HCl (Zofran) 4 mg PRN Q6HRS PRN IV Nausea; Start 09/21/16 at 07:00 ; Stop 09/22/16 at 06:59; Status DC Fentanyl Citrate (Fentanyl 2ml Vial) 25 mcg PRN Q5MIN PRN IV MILD PAIN; Start 09/21/16 at 07:00; Stop 09/22/16 at 06:59; Status DC Fentanyl Citrate (Fentanyl 2ml Vial) 50 mcg PRN Q5MIN PRN IV MODERATE PAIN; Start 09/21/16 at 07:00; Stop 09/22/16 at 06:59; Status DC Morphine Sulfate 1 mg 1 mg PRN Q10MIN PRN IV SEVERE PAIN; Start 09/21/16 at 07: 00; Stop 09/22/16 at 06:59; Status DC Lactated Ringer's (Iv Lactated Ringers) 1,000 ml @ 30 mls/hr Q24H IV Last administered on 09/21/16 09:52; Start 09/21/16 at 07:00; Stop 09/21/16 at 18:59 ; Status DC Lidocaine HCl 2 ml 1X PRN PRN ID IV START; Start 09/21/16 at 07:00; Stop at 06:59; Status DC Hydromorphone HCl (Dilaudid) 0.5 mg PRN Q10MIN PRN IV SEVERE PAIN, Second choice; Start 09/21/16 at 07:00; Stop 09/22/16 at 06:59; Status DC Prochlorperazine Edisylate (Compazine) 5 mg PACU PRN PRN IV NAUSEA; Start 09/21 at 07:00; Stop 09/22/16 at 06:59; Status DC Fentanyl Citrate 100 mcg 100 mcg STK-MED ONCE .ROUTE ; Start 09/21/16 at 08:58; Stop 09/21/16 at 08:59; Status DC Propofol (Diprivan) 20 ml @ As Directed STK-MED ONCE IV ; Start 09/21/16 at 08: 58; Stop 09/21/16 at 08:59; Status DC Lidocaine HCl 5 ml 5 ml STK-MED ONCE .ROUTE ; Start 09/21/16 at 08:58; Stop at 08:59; Status DC Propofol (Diprivan) 20 ml @ As Directed STK-MED ONCE IV ; Start 09/21/16 at 09: 59; Stop 09/21/16 at 10:00; Status DC Phenylephrine HCl 1 mg STK-MED ONCE IV ; Start 09/21/16 at 13:20; Stop 09/21/16 at 13:21; Status DC Active Scripts Active Aldactone (Spironolactone) 25 Mg Tablet 25 Mg PO DAILY Reported Aspir 81 (Aspirin) 81 Mg Tablet.dr 1 Tab PO DAILY Linzess (Linaclotide) 290 Mcg Capsule 290 Mcg PO DAILY Stiolto Respimat Inhal [place] (Tiotropium Br/Olodaterol HCl) 4 Gm Mist.inhal 4 Gm IH PRN TID PRN Digoxin 250 Mcg Tablet 1 Tab PO DAILY Coreg (Carvedilol) 6.25 Mg Tablet 1 Tab PO BID Lasix (Furosemide) 40 Mg Tablet 40 Mg PO BID Indication: diuretic Next dose: 02/05/15 am Proair Hfa Inhaler (Albuterol Sulfate) 8.5 Gm Hfa.aer.ad 2 Puff IH PRN Q4-6HRS Indication: shortness of breath Next dose: as needed Albuterol Sulfate Neb Soln (Albuterol Sulfate) 2.5 Mg/3 Ml Vial.neb 1 Vial NEB PRN Q4HRS PRN Indication: shortness of breath Next dose: as needed Vitals/I & O Vital Sign - Last 24 Hours 1/09/21/16 09/21/16 09/21/16 12:16 12:24 12:24 12:26 Pulse 95 95 95 94 B/P 130/81 130/81 130/81 136/90 09/21/16 09/21/16 09/21/16 09/21/16 12:41 12:41 12:56 13:26 Pulse 99 97 97 B/P 136/85 139/86 128/87 Pulse Ox 100 O2 Delivery Room Air 09/21/16 09/21/16 09/21/16 09/21/16 13:56 14:56 15:26 15:58 Pulse 73 86 84 B/P 127/79 125/74 126/68 Pulse Ox 90 O2 Delivery Room Air 09/21/16 09/21/16 09/21/16 09/21/16 16:27 19:40 20:00 21:52 Temp 97.3 97.3 Pulse 84 73 Resp 18 B/P 126/68 103/62 Pulse Ox 92 92 O2 Delivery Room Air Room Air Nasal Cannula O2 Flow Rate 2.0 09/21/16 09/22/16 09/22/16 09/22/16 23:00 03:54 07:50 07:52 Temp 97.8 97.9 97.5 97.8 97.9 97.5 Pulse 80 91 95 Resp 20 18 18 B/P 117/78 124/90 126/74 Pulse Ox 94 96 95 O2 Delivery Room Air Room Air Room Air Nasal Cannula O2 Flow Rate 2.0 09/22/16 09/22/16 09/22/16 09/22/16 08:00 08:47 08:48 08:48 Pulse 95 95 95 B/P 126/74 126/74 126/74 O2 Delivery Room Air 09/22/16 09/22/16 10:57 11:43 Temp 97.9 97.9 Pulse 90 Resp 20 B/P 128/64 Pulse Ox 97 86 O2 Delivery Room Air Nasal Cannula O2 Flow Rate 2.0 Intake and Output 09/21/16 09/21/16 09/22/16 15:00 23:00 07:00 Intake Total 350 ml 240 ml 610 ml Balance 350 ml 240 ml 610 ml CASTLE,NIAL K III DO Sep 22, 2016 12:01
[2016-09-22] MEDS ORDERED: LISI2.5T PO ×2 (13:51→13:52)
--- NOTE | 2016-09-22 16:42 | PDOC ---
PULMONARY PROGRESS NOTES Subjective no soa Vitals Vital Signs Date Time Temp Pulse Resp B/P Pulse Ox O2 Delivery O2 Flow Rate FiO2 09/22/16 11:43 86 Nasal Cannula 2.0 09/22/16 10:57 97.9 90 20 128/64 97.9 General: Alert Lungs: Clear, Other (No wheezes/crackles) Cardiovascular: S1, S2 Abdomen: Soft Neuro Exam: Alert Extremities: No Edema Skin: Warm Labs Laboratory Tests Test 09/21/16 03:41 09/22/16 03:40 White Blood Count 11.7x10^3/uL (4.0-11.0) 10.0x10^3/uL (4.0-11.0) Red Blood Count 5.66x10^6/uL (3.50-5.40) 5.57x10^6/uL (3.50-5.40) Hemoglobin 16.1g/dL (12.0-15.5) 15.7g/dL (12.0-15.5) Hematocrit 51.5% (36.0-47.0) 50.4% (36.0-47.0) Mean Corpuscular Volume 91fL (79-100) 91fL (79-100) Mean Corpuscular Hemoglobin 29pg (25-35) 28pg (25-35) Mean Corpuscular Hemoglobin Concent 31g/dL (31-37) 31g/dL (31-37) Red Cell Distribution Width 17.8% (11.5-14.5) 18.1% (11.5-14.5) Platelet Count 195x10^3/uL (140-400) 189x10^3/uL (140-400) Neutrophils (%) (Auto) 67% (31-73) 61% (31-73) Lymphocytes (%) (Auto) 25% (24-48) 27% (24-48) Monocytes (%) (Auto) 7% (0-9) 10% (0-9) Eosinophils (%) (Auto) 1% (0-3) 2% (0-3) Basophils (%) (Auto) 1% (0-3) 1% (0-3) Neutrophils # (Auto) 7.8x10^3uL (1.8-7.7) 6.1x10^3uL (1.8-7.7) Lymphocytes # (Auto) 2.9x10^3/uL (1.0-4.8) 2.7x10^3/uL (1.0-4.8) Monocytes # (Auto) 0.9x10^3/uL (0.0-1.1) 1.0x10^3/uL (0.0-1.1) Eosinophils # (Auto) 0.1x10^3/uL (0.0-0.7) 0.2x10^3/uL (0.0-0.7) Basophils # (Auto) 0.1x10^3/uL (0.0-0.2) 0.1x10^3/uL (0.0-0.2) Sodium Level 144mmol/L (136-145) 139mmol/L (136-145) Potassium Level 4.1mmol/L (3.5-5.1) 4.2mmol/L (3.5-5.1) Chloride Level 103mmol/L (98-107) 100mmol/L (98-107) Carbon Dioxide Level 33mmol/L (21-32) 32mmol/L (21-32) Anion Gap 8 (6-14) 7 (6-14) Blood Urea Nitrogen 27mg/dL (7-20) 29mg/dL (7-20) Creatinine 0.8mg/dL (0.6-1.0) 0.9mg/dL (0.6-1.0) Estimated GFR (Cockcroft-Gault) 76.2 66.5 Glucose Level 88mg/dL (70-99) 91mg/dL (70-99) Calcium Level 8.8mg/dL (8.5-10.1) 8.2mg/dL (8.5-10.1) Magnesium Level 2.0mg/dL (1.8-2.4) Triglycerides Level 107mg/dL (0-150) Cholesterol Level 133mg/dL (0-200) LDL Cholesterol, Calculated 87mg/dL (0-100) VLDL Cholesterol, Calculated 21mg/dL (0-40) HDL Cholesterol 25mg/dL (40-60) Cholesterol/HDL Ratio 5.3 Laboratory Tests Test 09/22/16 03:40 White Blood Count 10.0x10^3/uL (4.0-11.0) Red Blood Count 5.57x10^6/uL (3.50-5.40) Hemoglobin 15.7g/dL (12.0-15.5) Hematocrit 50.4% (36.0-47.0) Mean Corpuscular Volume 91fL (79-100) Mean Corpuscular Hemoglobin 28pg (25-35) Mean Corpuscular Hemoglobin Concent 31g/dL (31-37) Red Cell Distribution Width 18.1% (11.5-14.5) Platelet Count 189x10^3/uL (140-400) Neutrophils (%) (Auto) 61% (31-73) Lymphocytes (%) (Auto) 27% (24-48) Monocytes (%) (Auto) 10% (0-9) Eosinophils (%) (Auto) 2% (0-3) Basophils (%) (Auto) 1% (0-3) Neutrophils # (Auto) 6.1x10^3uL (1.8-7.7) Lymphocytes # (Auto) 2.7x10^3/uL (1.0-4.8) Monocytes # (Auto) 1.0x10^3/uL (0.0-1.1) Eosinophils # (Auto) 0.2x10^3/uL (0.0-0.7) Basophils # (Auto) 0.1x10^3/uL (0.0-0.2) Sodium Level 139mmol/L (136-145) Potassium Level 4.2mmol/L (3.5-5.1) Chloride Level 100mmol/L (98-107) Carbon Dioxide Level 32mmol/L (21-32) Anion Gap 7 (6-14) Blood Urea Nitrogen 29mg/dL (7-20) Creatinine 0.9mg/dL (0.6-1.0) Estimated GFR (Cockcroft-Gault) 66.5 Glucose Level 91mg/dL (70-99) Calcium Level 8.2mg/dL (8.5-10.1) Medications Active Scripts Medications Dose Route/Sig Days Date Category Dose Instructions Aspir 81 (Aspirin) 81 Mg Tablet.dr 1 Tab PO DAILY 09/19/16 Reported Linzess (Linaclotide) 290 Mcg Capsule 290 Mcg PO DAILY 10/29/16 Reported Stiolto Respimat Inhal [place] (Tiotropium Br/Olodaterol HCl) 4 Gm Mist.inhal 4 Gm IH PRN TID PRN 06/30/16 Reported Aldactone (Spironolactone) 25 Mg Tablet 25 Mg PO DAILY 08/10/15 Rx Digoxin 250 Mcg Tablet 1 Tab PO DAILY 02/08/15 Reported Coreg (Carvedilol) 6.25 Mg Tablet 1 Tab PO BID 02/08/15 Reported Lasix (Furosemide) 40 Mg Tablet 40 Mg PO BID 01/04/15 Reported Indication: diuretic Next dose: 02/05/15 am Proair Hfa Inhaler (Albuterol Sulfate) 8.5 Gm Hfa.aer.ad 2 Puff IH PRN Q4-6HRS 11/03/14 Reported Indication: shortness of breath Next dose: as needed Albuterol Sulfate Neb Soln (Albuterol Sulfate) 2.5 Mg/3 Ml Vial.neb 1 Vial NEB PRN Q4HRS PRN 11/03/14 Reported Indication: shortness of breath Next dose: as needed Impression . 1. Dyspnea secondary to [id number] systolic heart failure. 2. Severe cardiomyopathy with an EF of 15%, with severe global hypokinesis of the left ventricle. Status post defibrillator. 3. Suspected underlying chronic obstructive pulmonary disease: Could be moderate, with ongoing tobaccoism. Plan . 1. diuresis. To be managed by Cardiology. 2. From a pulmonary standpoint, I have given her counseling for tobacco cessation. 3. We will continue with present DuoNebs. 4. Currently, she does not have any wheezing and okay to continue with metoprolol. 5. Follow Cardiology recommendations. 6. Discussed with RN. JOSE A ESCOBAR MD Sep 22, 2016 16:42
--- NOTE | 2016-09-24 13:49 | PATHOLOGY ---
PATHOLOGY REPORT * * * * * * * * FINAL DIAGNOSIS: Duodenal biopsies: - No significant pathologic abnormalities. COMMENT: Sections of the duodenal biopsy reveal multiple segments of duodenal and small intestine mucosa. Where best oriented, the mucosal villi appear normal. There are no sprue-like changes or significant inflammatory changes. (JPM:all; d/t: 09/24/2016) REPORT ELECTRONICALLY SIGNED BY: Dong Hatch M.D. DATE/TIME: 09/24/2016 13:49 * * * * * * * * GROSS PATHOLOGY: Received in formalin labeled "Karina Pérez and duodenal biopsies," are multiple segments of barnhart soft tissue measuring 2.3 x 0.3 x 0.3 cm in aggregate dimensions and ranging from 0.3 to 0.6 cm in maximum dimension. The specimen is submitted entirely in cassette A1. (TTL; 09/21/2016) INITIAL CPT CODE(S): A; 02843 Professional services performed [place] [facility] [place] [address] Technical services performed by [facility] at [address] [place] [address]. SPECIMEN(S) RECEIVED: A.Duodenal biopsies, r/o celiac disease CLINICAL HISTORY: Abdominal pain PATIENT: KARINA PÉREZ /AGE: 9 1965 (Age: 51) PATIENT #: [id number] ALT CASE #: SPECIMEN COLLECTION DATE: 09/21/2016 SPECIMEN RECEIVED DATE: 09/21/2016 [facility] - [address] [place] [address] - PHONE: [phone] * * * END OF REPORT * * *
== END 2016-09-22 15:30 | disposition home or self-care (01) | DRG 291 ==
LOC: ER 21:16 → 2 SOUTH 22:31
PROVIDERS: ADMIT Internal Medicine Hematology & Oncology; ATTEND Internal Medicine Hematology & Oncology
PROC: 0DJD8ZZ Inspection of Lower Intestinal Tract, Via Natural or Artificial Opening Endoscopic (ICD-10-PCS; principal; 2016-09-21 10:30)
PROC: 0DB68ZX Excision of Stomach, Via Natural or Artificial Opening Endoscopic, Diagnostic (ICD-10-PCS; 2016-09-21 10:30)
DX: I50.43 Acute on chronic combined systolic (congestive) and diastolic (congestive) heart failure (principal); J96.01 Acute respiratory failure with hypoxia; K56.7 Ileus, unspecified; E44.0 Moderate protein-calorie malnutrition; I42.9 Cardiomyopathy, unspecified; I11.0 Hypertensive heart disease with heart failure; E78.5 Hyperlipidemia, unspecified; F17.200 Nicotine dependence, unspecified, uncomplicated; F41.9 Anxiety disorder, unspecified; K29.70 Gastritis, unspecified, without bleeding; G47.33 Obstructive sleep apnea (adult) (pediatric); J44.9 Chronic obstructive pulmonary disease, unspecified; J45.909 Unspecified asthma, uncomplicated; K29.80 Duodenitis without bleeding; K58.9 Irritable bowel syndrome, unspecified; K64.8 Other hemorrhoids; M19.90 Unspecified osteoarthritis, unspecified site; R32 Unspecified urinary incontinence; Z68.33 Body mass index [BMI] 33.0-33.9, adult; Z80.0 Family history of malignant neoplasm of digestive organs; Z82.49 Family history of ischemic heart disease and other diseases of the circulatory system; Z90.49 Acquired absence of other specified parts of digestive tract; Z95.810 Presence of automatic (implantable) cardiac defibrillator; Z98.51 Tubal ligation status; Z88.0 Allergy status to penicillin; Z88.1 Allergy status to other antibiotic agents
CPT/HCPCS: 36415; 74022; 80048; 80053; 80061; 82553; 83735; 83880; 84484; 85027; 87804; 93005; 94250; 94640; 94760; 96374; 96375; 99406; J1940; J2212; J2370; J2704; J2930; J3010; J3490; J7120; J7620; 99285-25